=== PATIENT | male | born 1960 | race Two or more races ===

== ENCOUNTER 2017-01-19 18:43 | Emergency (ER) | payer MEDICARE, MEDICAID ==
[~2017-01-19] VITALS: Ht 175.3 cm; Wt 86.2 kg
[~2017-01-19 18:43] MED LIST: CARV3.1240 PO; GAB100C PO; OME20T PO; PAR20T PO; SIMV-8 PO; TEMA15CA91 PO
[2017-01-19] MEDS ORDERED: LORazepam 2MG/ML-1ML VIAL IM ONE (21:45)
[2017-01-20] MEDS ORDERED: ONDANSETRON HCL 4 MG/2 ML VIAL IV ONE (03:30)
[2017-01-20] MEDS ORDERED: MORPHINE SULF INJ 2 MG/ML SYRINGE 1ML IV ONE (03:30)
[2017-01-20 04:13] LABS: Albumin 3.7 g/dL (3.4-5.0); Anion Gap 7 (5-15); Aspartate Aminotransferase 19 U/L (15-37); BUN/Creatinine Ratio 21.3; Blood Urea Nitrogen 17 mg/dL (7-18); Calcium 8.2 mg/dL (8.5-10.1); Carbon Dioxide 24 mmol/L (21-32); Chloride 107 mmol/L (98-107); GFR African American 130 mL/min; GFR Non-African American 107 mL/min; Glucose 88 mg/dL (74-106); Potassium 3.8 mmol/L (3.5-5.1); Sodium 138 mmol/L (136-145)
[2017-01-20 04:16] LABS: Alkaline Phosphatase 110 U/L (45-117); Bilirubin, Total 0.6 mg/dL (0.2-1.0); Total Protein 7.6 g/dL (6.4-8.2)
[2017-01-20 04:17] LABS: Acetaminophen < 2.0 ug/mL (10-30); Salicylate < 1.7 mg/dL (2.8-20.0)
[2017-01-20 05:41] LABS: Basophils # (auto) 0 uL; Basophils % (auto) 0.4 % (0.0-2.0); CONDITION Y; Eosinophils # (auto) 0.4 uL; Eosinophils % (auto) 5.1 % (0.0-7.0); Hematocrit 39.9 % (41.0-53.0); Hemoglobin 13.2 g/dL (13.5-17.5); Lymphocytes # (auto) 2.5 uL; Lymphocytes % (auto) 33.5 % (10.0-50.0); Mean Corpuscular Volume 84.7 fL (80.0-100.0); Mean Platelet Volume 9.9 fL (7.4-10.4); Monocytes # (auto) 0.5 uL; Monocytes % (auto) 7.3 % (0.0-12.0); Neutrophils % (auto) 53.7 % (37.0-80.0); Platelet Count (auto) 243 10^3/uL (140-450); Red Cell Distribution Width 17.2 % (11.6-16.0); White Blood Cell 7.5 10^3/uL (4.4-10.8)
[2017-01-20] MEDS ORDERED: LORazepam 0.5 MG TAB PO PRN (15:15)
[2017-01-20] MEDS ORDERED: LORazepam 2MG/ML-1ML VIAL ONE (16:02)
[2017-01-20] MEDS ORDERED: LORazepam 2MG/ML-1ML VIAL IM ONE (16:15)
[2017-01-20] MEDS ORDERED: HYDROcodone-ACET 10/325MG TAB PO ONE (21:00)
[2017-01-20] MEDS ORDERED: TEMAZEPAM 15 MG CAP PO PRN (21:00)
[2017-01-20] MEDS: LORazepam 2MG/ML-1ML VIAL IM PRN (23:05)
[2017-01-21] MEDS ORDERED: ONDANSETRON HCL 4 MG/2 ML VIAL ONE (03:16)
[2017-01-21] MEDS ORDERED: ONDANSETRON HCL 4 MG/2 ML VIAL IM ONE (03:45)
[2017-01-21] MEDS: LORazepam 2MG/ML-1ML VIAL IM PRN (06:52)
[2017-01-21] MEDS ORDERED: KETOROLAC TROMETH 60MG/2ML VIAL IM ONE (16:15)
[2017-01-21 18:57] VITALS: BP 127/75
== END 2017-01-21 19:12 | disposition short-term general hospital (02) ==
LOC: EDBD 18:43 → ER 18:46
DX: F32.9 Major depressive disorder, single episode, unspecified (principal); F41.9 Anxiety disorder, unspecified; G80.9 Cerebral palsy, unspecified; E78.5 Hyperlipidemia, unspecified; R45.851 Suicidal ideations; R42 Dizziness and giddiness
CPT/HCPCS: 36415; 70450; 71010; 72125; 80053; 80320; 80329; 82962; 83735; 85025; 93005; 94761; 96372; 96374; 96375; 99285; J1885; J2060; J2405

== ENCOUNTER 2017-02-09 21:32 | Emergency (ER) | payer MEDICARE, MEDICAID ==
[~2017-02-09] VITALS: Ht 175.3 cm; Wt 81.6 kg
[2017-02-09 22:14] LABS: Basophils # (auto) 0.1 uL; Basophils % (auto) 0.9 % (0.0-2.0); Eosinophils # (auto) 0.4 uL; Eosinophils % (auto) 4.1 % (0.0-7.0); Hematocrit 39.4 % (41.0-53.0); Hemoglobin 13.2 g/dL (13.5-17.5); Lymphocytes # (auto) 2.8 uL; Lymphocytes % (auto) 29.5 % (10.0-50.0); Mean Corpuscular Hemoglobin 28.8 pg (28.0-32.0); Mean Corpuscular Hgb Conc. 33.6 g/dL (32.0-36.0); Mean Corpuscular Volume 85.7 fL (80.0-100.0); Mean Platelet Volume 9.3 fL (6.9-10.8); Monocytes # (auto) 0.6 uL; Monocytes % (auto) 6.6 % (0.0-12.0); Neutrophils # (auto) 5.5 uL; Neutrophils % (auto) 58.9 % (37.0-80.0); Nucleated Red Blood Cells % 0.4 %; Platelet Count (auto) 193 10^3/uL (140-450); Red Cell Distribution Width 17.2 % (11.8-14.3); White Blood Cell 9.4 10^3/uL (4.4-10.8)
[2017-02-09 22:49] LABS: Albumin 3.5 g/dL (3.4-5.0); BUN/Creatinine Ratio 21.4; Bilirubin, Total 0.4 mg/dL (0.2-1.0); Calcium 8.5 mg/dL (8.5-10.1); Potassium 3.5 mmol/L (3.5-5.1); Total Protein 7.1 g/dL (6.4-8.2)
[2017-02-10] MEDS ORDERED: LORazepam 2MG/ML-1ML VIAL IV ONE
[2017-02-10] MEDS ORDERED: MORPHINE SULF INJ 2 MG/ML SYRINGE 1ML IV ONE (01:30)
[2017-02-10] MEDS ORDERED: ONDANSETRON HCL 4 MG/2 ML VIAL IV ONE (01:30)
[2017-02-10 01:37] LABS: Urine Bilirubin Negative (Negative); Urine Blood Negative /uL (Negative); Urine Color Yellow (Yellow); Urine Glucose Normal (Normal); Urine Ketone Negative (Negative); Urine Nitrite Negative (Negative); Urine RBC 1 /hpf (0 - 3); Urine Squamous Epithelial Cell FEW /hpf (<5); Urine pH 6.5 (5.0-8.0)
[2017-02-10] MEDS ORDERED: MAGNESIUM CITRATE SOLUTION 300 ML BTL PO ONE (03:15)
[2017-02-10 07:30] VITALS: BP 129/84
== END 2017-02-10 08:50 | disposition home or self-care (01) ==
LOC: EDBD 21:32 → ER 21:38
DX: K59.00 Constipation, unspecified (principal); I10 Essential (primary) hypertension; Z88.0 Allergy status to penicillin
CPT/HCPCS: 36415; 74176; 80053; 81001; 82150; 83690; 85025; 96374; 96375; 99285; J2060; J2270; J2405

== ENCOUNTER 2017-03-15 16:01 | Emergency (ER) | payer MEDICARE, MEDICAID ==
[2017-03-15 16:42] VITALS: BP 126/84
== END 2017-03-15 18:26 | disposition home or self-care (01) ==
LOC: EDBD 16:01 → ER 16:01
DX: F41.9 Anxiety disorder, unspecified (principal); G80.9 Cerebral palsy, unspecified; I10 Essential (primary) hypertension; E78.5 Hyperlipidemia, unspecified; Z88.0 Allergy status to penicillin

== ENCOUNTER 2017-06-13 15:22 | Emergency (ER) | payer MEDICARE, MEDICAID ==
[~2017-06-13] VITALS: Ht 172.7 cm; Wt 74.8 kg
[2017-06-13 15:49] VITALS: BP 135/93
[2017-06-13 16:21] LABS: Eosinophils # (auto) 0.2 uL; Hemoglobin 13.8 g/dL (13.5-17.5); Lymphocytes # (auto) 2.7 uL; Mean Corpuscular Hgb Conc. 32.4 g/dL (32.0-36.0); Monocytes # (auto) 0.5 uL
[2017-06-13 16:25] LABS: Basophils # (auto) 0.1 uL; Basophils % (auto) 0.9 % (0.0-2.0); Eosinophils % (auto) 2.1 % (0.0-7.0); Hematocrit 42.7 % (41.0-53.0); Lymphocytes % (auto) 34.6 % (10.0-50.0); Mean Corpuscular Hemoglobin 26.8 pg (28.0-32.0); Mean Corpuscular Volume 82.7 fL (80.0-100.0); Monocytes % (auto) 7.1 % (0.0-12.0); Neutrophils # (auto) 4.3 uL; Neutrophils % (auto) 55.3 % (37.0-80.0); Nucleated Red Blood Cells % 0.3 %; Platelet Count (auto) 255 10^3/uL (140-450); Red Blood Cells 5.16 10^6/uL (4.5-5.90); White Blood Cell 7.7 10^3/uL (4.4-10.8)
[2017-06-13 16:41] LABS: Alanine Aminotransferase 28 U/L (16-61); Albumin 4.2 g/dL (3.4-5.0); Alkaline Phosphatase 127 U/L (45-117); Anion Gap 9 (5-15); Aspartate Aminotransferase 20 U/L (15-37); BUN/Creatinine Ratio 17.9; Bilirubin, Total 0.7 mg/dL (0.2-1.0); Blood Urea Nitrogen 15 mg/dL (7-18); Calcium 8.7 mg/dL (8.5-10.1); Carbon Dioxide 25 mmol/L (21-32); Chloride 102 mmol/L (98-107); GFR African American 122 mL/min; GFR Non-African American 101 mL/min; Glucose 84 mg/dL (74-106); Potassium 4.1 mmol/L (3.5-5.1); Sodium 136 mmol/L (136-145); Total Protein 8.7 g/dL (6.4-8.2)
== END 2017-06-13 18:24 | disposition left against medical advice (07) ==
LOC: ER 15:31
DX: R53.1 Weakness (principal); R52 Pain, unspecified; Z53.21 Procedure and treatment not carried out due to patient leaving prior to being seen by health care provider
CPT/HCPCS: 36415; 80053; 82962; 84484; 85025; 93005

== ENCOUNTER 2017-06-15 07:04 | Emergency (ER) | payer MEDICARE, MEDICAID ==
[~2017-06-15] VITALS: Ht 167.6 cm; Wt 77.1 kg
[2017-06-15 08:45] LABS: Basophils # (auto) 0 uL; Eosinophils # (auto) 0.2 uL; Mean Corpuscular Hgb Conc. 32.3 g/dL (32.0-36.0); Nucleated Red Blood Cells % 0.1 %
[2017-06-15 08:47] LABS: Basophils % (auto) 0.8 % (0.0-2.0); Hematocrit 40.2 % (41.0-53.0); Lymphocytes # (auto) 1.7 uL; Mean Corpuscular Hemoglobin 26.6 pg (28.0-32.0); Mean Corpuscular Volume 82.3 fL (80.0-100.0); Monocytes # (auto) 0.4 uL; Monocytes % (auto) 7.8 % (0.0-12.0); Neutrophils # (auto) 2.5 uL; Neutrophils % (auto) 51.4 % (37.0-80.0); Platelet Count (auto) 231 10^3/uL (140-450); Red Blood Cells 4.88 10^6/uL (4.5-5.90); Red Cell Distribution Width 15.7 % (11.8-14.3); White Blood Cell 4.8 10^3/uL (4.4-10.8)
[2017-06-15 08:58] LABS: Albumin 3.7 g/dL (3.4-5.0); Anion Gap 9 (5-15); Blood Urea Nitrogen 18 mg/dL (7-18); Calcium 8.8 mg/dL (8.5-10.1); Carbon Dioxide 24 mmol/L (21-32); Chloride 106 mmol/L (98-107); Glucose 92 mg/dL (74-106); Magnesium 2.4 mg/dL (1.6-2.6); Potassium 3.9 mmol/L (3.5-5.1); Sodium 139 mmol/L (136-145)
[2017-06-15 09:01] LABS: Alanine Aminotransferase 24 U/L (16-61); Aspartate Aminotransferase 15 U/L (15-37); BUN/Creatinine Ratio 20.9; GFR African American 119 mL/min; GFR Non-African American 98 mL/min
[2017-06-15 09:05] LABS: Alkaline Phosphatase 108 U/L (45-117); Bilirubin, Total 0.3 mg/dL (0.2-1.0); Total Protein 7.6 g/dL (6.4-8.2)
[2017-06-15] MEDS ORDERED: KETOROLAC TROMETH 60MG/2ML VIAL IM ONE (09:15)
[2017-06-15 09:58] VITALS: BP 124/80
== END 2017-06-15 09:13 | disposition home or self-care (01) ==
LOC: EDBD 07:04 → EDUNIT# 07:04 → ER 07:04
DX: G80.9 Cerebral palsy, unspecified (principal); M77.9 Enthesopathy, unspecified; I10 Essential (primary) hypertension; E78.5 Hyperlipidemia, unspecified; Z88.0 Allergy status to penicillin
CPT/HCPCS: 36415; 71045; 80053; 83735; 84484; 85025; 93005; 94761; 96372; 99285; J1885

== ENCOUNTER 2017-11-08 15:53 | Emergency (ER) | payer MEDICARE, MEDICAID ==
[~2017-11-08] VITALS: Ht 182.9 cm; Wt 81.6 kg
[2017-11-08 16:07] VITALS: BP 131/76
== END 2017-11-08 17:13 | disposition home or self-care (01) ==
LOC: ER 15:55
DX: L25.9 Unspecified contact dermatitis, unspecified cause (principal); E78.5 Hyperlipidemia, unspecified; I10 Essential (primary) hypertension; Z88.0 Allergy status to penicillin; Z79.899 Other long term (current) drug therapy

== ENCOUNTER 2017-11-12 15:26 | Emergency (ER) | payer MEDICARE, MEDICAID ==
[~2017-11-12] VITALS: Ht 157.5 cm; Wt 72.6 kg
[2017-11-12 16:33] VITALS: BP 132/87
[2017-11-12 16:42] LABS: Basophils # (auto) 0.1 uL; Basophils % (auto) 0.9 % (0.0-2.0); Eosinophils # (auto) 0.3 uL; Eosinophils % (auto) 4.3 % (0.0-7.0); Hematocrit 42.1 % (41.0-53.0); Lymphocytes % (auto) 28.9 % (10.0-50.0); Mean Corpuscular Hemoglobin 27.9 pg (28.0-32.0); Mean Corpuscular Hgb Conc. 33.4 g/dL (32.0-36.0); Mean Corpuscular Volume 83.7 fL (80.0-100.0); Monocytes # (auto) 0.5 uL; Monocytes % (auto) 7.7 % (0.0-12.0); Neutrophils # (auto) 4.1 uL; Neutrophils % (auto) 58.2 % (37.0-80.0); Nucleated Red Blood Cells % 0.1 %; Platelet Count (auto) 207 10^3/uL (140-450); Red Blood Cells 5.03 10^6/uL (4.5-5.90); Red Cell Distribution Width 16.6 % (11.8-14.3)
[2017-11-12 17:06] LABS: Albumin 3.9 g/dL (3.4-5.0); BUN/Creatinine Ratio 18.8; Calcium 8.6 mg/dL (8.5-10.1); Salicylate < 1.7 mg/dL (2.8-20.0)
[2017-11-12 17:08] LABS: Acetaminophen < 2.0 ug/mL (10-30)
[2017-11-12 17:09] LABS: Bilirubin, Total 0.6 mg/dL (0.2-1.0)
== END 2017-11-12 19:56 | disposition home or self-care (01) ==
LOC: EDBD 15:26 → ER 15:28
DX: F41.9 Anxiety disorder, unspecified (principal); I10 Essential (primary) hypertension; E78.5 Hyperlipidemia, unspecified; F31.9 Bipolar disorder, unspecified
CPT/HCPCS: 36415; 80053; 80320; 80329; 85025

== ENCOUNTER 2017-12-18 20:47 | Inpatient (IN) | payer MEDICARE, MEDICAID ==
[~2017-12-18] VITALS: Ht 165.1 cm; Wt 73.4 kg
[2017-12-18 23:31] LABS: Basophils # (auto) 0.1 uL; Basophils % (auto) 0.8 % (0.0-2.0); Eosinophils # (auto) 0.3 uL; Eosinophils % (auto) 4.7 % (0.0-7.0); Hematocrit 41.9 % (41.0-53.0); Hemoglobin 13.6 g/dL (13.5-17.5); Lymphocytes % (auto) 42.8 % (10.0-50.0); Mean Corpuscular Hemoglobin 27.9 pg (28.0-32.0); Mean Corpuscular Hgb Conc. 32.4 g/dL (32.0-36.0); Mean Corpuscular Volume 86.3 fL (80.0-100.0); Monocytes # (auto) 0.5 uL; Monocytes % (auto) 6.7 % (0.0-12.0); Neutrophils # (auto) 3.2 uL; Platelet Count (auto) 260 10^3/uL (140-450); Red Blood Cells 4.86 10^6/uL (4.5-5.90); Red Cell Distribution Width 16.3 % (11.8-14.3)
[2017-12-18 23:48] LABS: Acetaminophen < 2.0 ug/mL (10-30); Salicylate < 1.7 mg/dL (2.8-20.0)
[2017-12-18 23:51] LABS: Albumin 3.8 g/dL (3.4-5.0); Bilirubin, Total 0.6 mg/dL (0.2-1.0); Calcium 8.1 mg/dL (8.5-10.1); Magnesium 2.6 mg/dL (1.6-2.6); Potassium 3.8 mmol/L (3.5-5.1); Total Protein 7.8 g/dL (6.4-8.2)
[2017-12-19] MEDS ORDERED: MORPHINE SULFATE 4 MG/ML SYR/VIAL IV ONE (05:15)
[2017-12-19] MEDS ORDERED: ONDANSETRON HCL 4 MG/2 ML VIAL IV ONE (05:15)
[2017-12-19] MEDS ORDERED: KETOROLAC TROMETH 30 MG/ML 1ML VIAL IV ONE (09:00)
[2017-12-19 09:04] LABS: Alcohol, Urine < 3.0 mg/dL (0-5); Amphetamine Screen, Urine NEGATIVE (NEGATIVE); Barbiturate Scree,Urine NEGATIVE (NEGATIVE); Benzodiazephine Screen, Urine POSITIVE (NEGATIVE); Cannabinoid Screen, Urine NEGATIVE (NEGATIVE); Cocaine Screen, Urine NEGATIVE (NEGATIVE); Opiate Scree,Urine NEGATIVE (NEGATIVE); Phencyclidine Screen, Urine NEGATIVE (NEGATIVE)
[2017-12-19] MEDS ORDERED: LORazepam 0.5 MG TAB PO ONE (14:00)
[2017-12-19] MEDS ORDERED: traZODone HCL 50 MG TAB PO ONE (18:00)
[2017-12-19] MEDS ORDERED: HYDROcodone-ACET 5/325MG TAB PO ONE (18:00)
[2017-12-20] MEDS ORDERED: HYDROcodone-ACET 5/325MG TAB PO ONE ×3 (05:00→13:00)
[2017-12-20] MEDS ORDERED: KETOROLAC TROMETH 30 MG/ML 1ML VIAL IV ONE ×2 (09:15→17:00)
[2017-12-20] MEDS ORDERED: PARoxetine 20 MG TAB PO ONE (10:00)
[2017-12-20] MEDS ORDERED: LORazepam 2MG/ML-1ML VIAL IV ONE (19:30)
[2017-12-20] MEDS ORDERED: HALOPERIDOL LACTATE 5 MG/ML INJ VIAL IM ONE (19:30)
[2017-12-20] MEDS ORDERED: diphenhdrAMINE HCL 50 MG/1 ML VL IV ONE (19:30)
[2017-12-20] MEDS ORDERED: diphenhdrAMINE HCL 50 MG/1 ML VL IV PRN (21:00)
[2017-12-20] MEDS ORDERED: TEMAZEPAM 15 MG CAP PO PRN (21:00)
[2017-12-20] MEDS ORDERED: ONDANSETRON HCL 4 MG/2 ML VIAL IV PRN (21:00)
[2017-12-20] MEDS: CARVEDILOL 3.125 MG TAB PO SCH (22:00)
[2017-12-20] MEDS: GABAPENTIN 100 MG CAP PO SCH (22:00)
[2017-12-20 22:30] VITALS: BP 118/97
[2017-12-20] MEDS ORDERED: TRAZ50TA2 PO (23:31)
[2017-12-21 05:00] VITALS: BP 120/75
[2017-12-21 05:49] LABS: Basophils # (auto) 0.1 uL; Basophils % (auto) 0.6 % (0.0-2.0); Eosinophils # (auto) 0.2 uL; Eosinophils % (auto) 2.3 % (0.0-7.0); Hematocrit 41.6 % (41.0-53.0); Hemoglobin 13.9 g/dL (13.5-17.5); Lymphocytes # (auto) 2.1 uL; Lymphocytes % (auto) 25.1 % (10.0-50.0); Mean Corpuscular Hemoglobin 28.3 pg (28.0-32.0); Mean Corpuscular Hgb Conc. 33.4 g/dL (32.0-36.0); Mean Corpuscular Volume 84.7 fL (80.0-100.0); Monocytes # (auto) 0.5 uL; Monocytes % (auto) 5.6 % (0.0-12.0); Neutrophils # (auto) 5.4 uL; Neutrophils % (auto) 66.4 % (37.0-80.0); Platelet Count (auto) 234 10^3/uL (140-450); Red Blood Cells 4.91 10^6/uL (4.5-5.90); Red Cell Distribution Width 15.9 % (11.8-14.3); White Blood Cell 8.2 10^3/uL (4.4-10.8)
[2017-12-21] MEDS: GABAPENTIN 100 MG CAP PO SCH ×3 (06:00→21:23)
[2017-12-21 06:13] LABS: BUN/Creatinine Ratio 25.3; Calcium 8.7 mg/dL (8.5-10.1); Potassium 4.1 mmol/L (3.5-5.1)
[2017-12-21 08:00] VITALS: BP 116/67
[2017-12-21] MEDS: ACETAMINOPHEN 650 mg PER 20 mL UD PO PRN ×2 (09:29→15:59)
[2017-12-21] MEDS: PARoxetine 20 MG TAB PO SCH (10:00)
[2017-12-21] MEDS: CARVEDILOL 3.125 MG TAB PO SCH ×2 (10:00→21:20)
[2017-12-21] MEDS: LORazepam 2MG/ML-1ML VIAL IV PRN (12:14)
[2017-12-21] MEDS: MORPHINE SULF INJ 2 MG/ML SYRINGE 1ML IV PRN ×2 (16:34→22:00)
[2017-12-21 21:19] VITALS: BP 101/61
[2017-12-22 05:00] VITALS: BP 104/69
[2017-12-22] MEDS: MORPHINE SULF INJ 2 MG/ML SYRINGE 1ML IV PRN ×4 (05:03→23:05)
[2017-12-22] MEDS: GABAPENTIN 100 MG CAP PO SCH ×3 (05:48→21:42)
[2017-12-22 08:00] VITALS: BP 123/80
[2017-12-22 08:36] VITALS: BP 123/80
[2017-12-22] MEDS: CARVEDILOL 3.125 MG TAB PO SCH ×2 (10:00→21:42)
[2017-12-22] MEDS: PARoxetine 20 MG TAB PO SCH (11:16)
[2017-12-22] MEDS: D5W/SOD CHLO 0.9% 1,000 ML IV SCH (11:16)
[2017-12-22 12:58] VITALS: BP 134/79
[2017-12-22 17:00] VITALS: BP 137/75
[2017-12-22 21:03] VITALS: BP 99/73
[2017-12-22] MEDS: LORazepam 2MG/ML-1ML VIAL IV PRN (21:31)
[2017-12-23] MEDS: D5W/SOD CHLO 0.9% 1,000 ML IV SCH ×2 (00:15→12:30)
[2017-12-23] MEDS: LORazepam 2MG/ML-1ML VIAL IV PRN (04:05)
[2017-12-23 05:09] VITALS: BP 107/66
[2017-12-23] MEDS: GABAPENTIN 100 MG CAP PO SCH ×3 (06:18→21:43)
[2017-12-23] MEDS: MORPHINE SULF INJ 2 MG/ML SYRINGE 1ML IV PRN ×3 (06:19→18:31)
[2017-12-23 09:04] VITALS: BP 141/75
[2017-12-23] MEDS: CARVEDILOL 3.125 MG TAB PO SCH ×2 (09:59→21:44)
[2017-12-23] MEDS: HYDROcodone-ACET 5/325MG TAB PO PRN ×2 (09:59→21:43)
[2017-12-23] MEDS: PARoxetine 20 MG TAB PO SCH (10:00)
[2017-12-23 13:00] VITALS: BP 113/73
[2017-12-23 16:55] VITALS: BP 117/76
[2017-12-23 19:30] VITALS: BP 118/77
[2017-12-23 22:00] VITALS: BP 118/77
[2017-12-24] MEDS: D5W/SOD CHLO 0.9% 1,000 ML IV SCH ×2 (01:45→18:30)
[2017-12-24 05:00] VITALS: BP 120/72
[2017-12-24] MEDS: MORPHINE SULF INJ 2 MG/ML SYRINGE 1ML IV PRN ×3 (05:09→21:23)
[2017-12-24] MEDS: GABAPENTIN 100 MG CAP PO SCH ×3 (05:37→21:23)
[2017-12-24 08:00] VITALS: BP 102/72
[2017-12-24 09:13] VITALS: BP 102/72
[2017-12-24] MEDS: PARoxetine 20 MG TAB PO SCH (09:44)
[2017-12-24] MEDS: CARVEDILOL 3.125 MG TAB PO SCH ×2 (09:44→21:24)
[2017-12-24] MEDS: HYDROcodone-ACET 5/325MG TAB PO PRN ×2 (09:45→09:58)
[2017-12-24 14:23] VITALS: BP 104/68
[2017-12-24 17:44] VITALS: BP 132/77
[2017-12-24 22:00] VITALS: BP 108/67
[2017-12-25 05:42] VITALS: BP 109/70
[2017-12-25] MEDS: GABAPENTIN 100 MG CAP PO SCH ×3 (06:01→22:15)
[2017-12-25] MEDS: MORPHINE SULF INJ 2 MG/ML SYRINGE 1ML IV PRN ×2 (06:38→18:59)
[2017-12-25 08:00] VITALS: BP 102/62
[2017-12-25 08:47] VITALS: BP 125/80
[2017-12-25] MEDS: D5W/SOD CHLO 0.9% 1,000 ML IV SCH ×2 (08:57→17:45)
[2017-12-25] MEDS: CARVEDILOL 3.125 MG TAB PO SCH ×2 (08:58→22:16)
[2017-12-25] MEDS: DOCUSATE SOD 100 MG CAP PO SCH ×2 (08:58→22:15)
[2017-12-25] MEDS: PARoxetine 20 MG TAB PO SCH (08:59)
[2017-12-25] MEDS: HYDROcodone-ACET 5/325MG TAB PO PRN (11:46)
[2017-12-25 13:08] VITALS: BP 99/51
[2017-12-25 17:24] VITALS: BP 109/70
[2017-12-25 21:56] VITALS: BP 112/74
[2017-12-26 04:50] VITALS: BP 106/58
[2017-12-26] MEDS: GABAPENTIN 100 MG CAP PO SCH ×2 (05:51→14:28)
[2017-12-26] MEDS: MORPHINE SULF INJ 2 MG/ML SYRINGE 1ML IV PRN ×2 (06:02→14:32)
[2017-12-26 08:43] VITALS: BP 121/70
[2017-12-26] MEDS: HYDROcodone-ACET 5/325MG TAB PO PRN ×2 (10:05→17:55)
[2017-12-26] MEDS: PARoxetine 20 MG TAB PO SCH (10:05)
[2017-12-26] MEDS: DOCUSATE SOD 100 MG CAP PO SCH (10:06)
[2017-12-26] MEDS: CARVEDILOL 3.125 MG TAB PO SCH (10:06)
[2017-12-26] MEDS: D5W/SOD CHLO 0.9% 1,000 ML IV SCH (12:41)
[2017-12-26 13:00] VITALS: BP 103/68
[2017-12-26 17:00] VITALS: BP 106/67
== END 2017-12-26 21:00 | disposition home or self-care (01) | DRG 881 ==
LOC: EDBD 20:47 → ER 20:57 → OVERFLOW 20:58 → EAST 12-20 22:50
PROVIDERS: ADMIT Nurse Practitioner Family; ATTEND Family Medicine
DX: F32.9 Major depressive disorder, single episode, unspecified (principal); R45.851 Suicidal ideations; G80.9 Cerebral palsy, unspecified; I10 Essential (primary) hypertension; E78.00 Pure hypercholesterolemia, unspecified; F41.9 Anxiety disorder, unspecified; F17.200 Nicotine dependence, unspecified, uncomplicated; Z82.49 Family history of ischemic heart disease and other diseases of the circulatory system; Z99.3 Dependence on wheelchair; Z83.3 Family history of diabetes mellitus; Z79.899 Other long term (current) drug therapy
CPT/HCPCS: 36415; 71045; 72125; 80048; 80053; 80307; 80329; 83735; 85025; 94761; 96374; 96375; J1885; J2405; J7042

== ENCOUNTER 2018-01-31 12:42 | Emergency (ER) | payer MEDICARE, MEDICAID ==
[~2018-01-31] VITALS: Ht 167.6 cm; Wt 77.1 kg
[~2018-01-31 12:42] MED LIST changes: +TRAZ50TA2 PO
[2018-01-31] MEDS ORDERED: SODIUM CHLORIDE 0.9% 1,000 ML IV ONE (13:07)
[2018-01-31] MEDS ORDERED: DIPHENOXYLATE W/ATROPINE 2.5 MG TAB PO ONE (13:15)
[2018-01-31 13:28] LABS: Basophils # (auto) 0.1 uL; Basophils % (auto) 0.7 % (0.0-2.0); Eosinophils # (auto) 0.2 uL; Eosinophils % (auto) 3.2 % (0.0-7.0); Hematocrit 41.3 % (41.0-53.0); Hemoglobin 13.9 g/dL (13.5-17.5); Lymphocytes # (auto) 2.3 uL; Lymphocytes % (auto) 30.8 % (10.0-50.0); Mean Corpuscular Hemoglobin 28.8 pg (28.0-32.0); Mean Corpuscular Hgb Conc. 33.7 g/dL (32.0-36.0); Mean Corpuscular Volume 85.4 fL (80.0-100.0); Monocytes # (auto) 0.7 uL; Monocytes % (auto) 9.2 % (0.0-12.0); Neutrophils # (auto) 4.2 uL; Neutrophils % (auto) 56.1 % (37.0-80.0); Nucleated Red Blood Cells % 0.1 %; Platelet Count (auto) 197 10^3/uL (140-450); Red Blood Cells 4.84 10^6/uL (4.5-5.90); Red Cell Distribution Width 15.7 % (11.8-14.3); White Blood Cell 7.5 10^3/uL (4.4-10.8)
[2018-01-31 13:51] LABS: Alanine Aminotransferase 33 U/L (16-61); Alkaline Phosphatase 113 U/L (45-117); Anion Gap 7 (5-15); Aspartate Aminotransferase 16 U/L (15-37); BUN/Creatinine Ratio 15.3; Bilirubin, Total 0.5 mg/dL (0.2-1.0); Blood Urea Nitrogen 15 mg/dL (7-18); Calcium 9.1 mg/dL (8.5-10.1); Carbon Dioxide 26 mmol/L (21-32); Chloride 105 mmol/L (98-107); GFR African American 102 mL/min; GFR Non-African American 84 mL/min; Glucose 99 mg/dL (74-106); Potassium 4.5 mmol/L (3.5-5.1); Sodium 138 mmol/L (136-145); Total Protein 8.2 g/dL (6.4-8.2)
[2018-01-31] MEDS ORDERED: HYDROcodone-ACET 5/325MG TAB PO ONE (14:45)
[2018-01-31] MEDS ORDERED: ONDANSETRON HCL 4 MG/2 ML VIAL IV ONE (14:45)
[2018-01-31] MEDS ORDERED: MORPHINE SULFATE 4 MG/ML SYR/VIAL IV ONE (14:45)
[2018-01-31 17:07] LABS: Urine Bacteria NONE SEEN /hpf (None Seen); Urine Blood Negative /uL (Negative); Urine Specific Gravity 1.008 (1.001-1.035); Urine WBC 1 /hpf (0 - 3)
[2018-01-31 18:00] VITALS: BP 124/71
== END 2018-01-31 18:15 | disposition home or self-care (01) ==
LOC: EDBD 12:42 → EDUNIT# 12:42 → ER 12:42
DX: R19.7 Diarrhea, unspecified (principal); E78.5 Hyperlipidemia, unspecified; Z88.0 Allergy status to penicillin; Z79.899 Other long term (current) drug therapy
CPT/HCPCS: 36415; 74176; 80053; 81001; 84484; 85025; 93005; 96361; 96374; 96375; 99285; J2270; J2405

== ENCOUNTER 2018-02-08 20:42 | Observation (INO) | payer MEDICARE, MEDICAID ==
[~2018-02-08] VITALS: Ht 167.6 cm; Wt 86.2 kg
[2018-02-09 00:32] LABS: Basophils # (auto) 0.2 uL; Basophils % (auto) 2.1 % (0.0-2.0); Eosinophils # (auto) 0.3 uL; Eosinophils % (auto) 3.5 % (0.0-7.0); Hematocrit 39.7 % (41.0-53.0); Hemoglobin 13.1 g/dL (13.5-17.5); Lymphocytes # (auto) 2.8 uL; Lymphocytes % (auto) 35.1 % (10.0-50.0); Mean Corpuscular Hemoglobin 28.4 pg (28.0-32.0); Mean Corpuscular Volume 85.9 fL (80.0-100.0); Monocytes # (auto) 0.5 uL; Monocytes % (auto) 6.3 % (0.0-12.0); Neutrophils # (auto) 4.3 uL; Nucleated Red Blood Cells % 0.1 %; Platelet Count (auto) 203 10^3/uL (140-450); Red Blood Cells 4.62 10^6/uL (4.5-5.90); Red Cell Distribution Width 15.7 % (11.8-14.3); White Blood Cell 8.1 10^3/uL (4.4-10.8)
[2018-02-09 00:54] LABS: Albumin 3.7 g/dL (3.4-5.0); BUN/Creatinine Ratio 14.6; Calcium 8.4 mg/dL (8.5-10.1); Potassium 4.2 mmol/L (3.5-5.1)
[2018-02-09 00:57] LABS: Bilirubin, Total 0.6 mg/dL (0.2-1.0); Total Protein 7.7 g/dL (6.4-8.2)
[2018-02-09] MEDS ORDERED: ACETAMINOPHEN/CODEINE#3 (300/30mg) TAB PO ONE (05:45)
[2018-02-09 08:47] VITALS: BP 109/78
== END 2018-02-09 08:53 | disposition home or self-care (01) | DRG 392 ==
LOC: EDUNIT# 20:42 → EDBD 20:42 → ER 20:44 → OVERFLOW 20:45 → ER 02-09 08:53
PROVIDERS: ADMIT Emergency Medicine; ATTEND Emergency Medicine
DX: R10.9 Unspecified abdominal pain (principal); K80.20 Calculus of gallbladder without cholecystitis without obstruction; F17.200 Nicotine dependence, unspecified, uncomplicated
CPT/HCPCS: 36415; 74176; 80053; 82150; 83690; 85025; 99285; G0378

== ENCOUNTER 2018-03-04 14:17 | Emergency (ER) | payer MEDICARE, MEDICAID ==
[~2018-03-04] VITALS: Ht 165.1 cm; Wt 77.1 kg
[2018-03-04] MEDS ORDERED: SODIUM CHLORIDE 0.9% 1,000 ML IV ONE (14:55)
[2018-03-04 15:35] LABS: Basophils # (auto) 0 uL; Basophils % (auto) 0.5 % (0.0-2.0); Eosinophils # (auto) 0.3 uL; Eosinophils % (auto) 5.1 % (0.0-7.0); Hematocrit 44.5 % (41.0-53.0); Hemoglobin 15.2 g/dL (13.5-17.5); Lymphocytes # (auto) 1.3 uL; Lymphocytes % (auto) 22.9 % (10.0-50.0); Mean Corpuscular Hemoglobin 29.1 pg (28.0-32.0); Mean Corpuscular Hgb Conc. 34.1 g/dL (32.0-36.0); Mean Corpuscular Volume 85.4 fL (80.0-100.0); Monocytes # (auto) 0.5 uL; Monocytes % (auto) 8.8 % (0.0-12.0); Neutrophils # (auto) 3.5 uL; Neutrophils % (auto) 62.7 % (37.0-80.0); Nucleated Red Blood Cells % 0.1 %; Platelet Count (auto) 191 10^3/uL (140-450); Red Blood Cells 5.21 10^6/uL (4.5-5.90); Red Cell Distribution Width 15.8 % (11.8-14.3); White Blood Cell 5.6 10^3/uL (4.4-10.8)
[2018-03-04 15:52] LABS: Anion Gap 6 (5-15); Blood Urea Nitrogen 9 mg/dL (7-18); Calcium 9.1 mg/dL (8.5-10.1); Carbon Dioxide 27 mmol/L (21-32); Chloride 102 mmol/L (98-107); Glucose 95 mg/dL (74-106); INR 0.96 (0.9-1.15); Potassium 3.5 mmol/L (3.5-5.1); Prothrombin Time 10.3 sec (9.27-12.13); Sodium 135 mmol/L (136-145)
[2018-03-04 16:00] LABS: Salicylate < 1.7 mg/dL (2.8-20.0)
[2018-03-04 16:03] LABS: Acetaminophen < 2.0 ug/mL (10-30)
[2018-03-04 16:07] LABS: Alanine Aminotransferase 20 U/L (16-61); Alkaline Phosphatase 123 U/L (45-117); Aspartate Aminotransferase 11 U/L (15-37); BUN/Creatinine Ratio 9.1; Bilirubin, Total 0.9 mg/dL (0.2-1.0); GFR African American 101 mL/min; GFR Non-African American 83 mL/min; Total Protein 8.3 g/dL (6.4-8.2)
[2018-03-04] MEDS ORDERED: ONDANSETRON HCL 4 MG/2 ML VIAL IV ONE (17:00)
[2018-03-04] MEDS ORDERED: MORPHINE SULFATE 4 MG/ML SYR/VIAL IV ONE (17:00)
[2018-03-04 17:21] LABS: Amphetamine Screen, Urine NEGATIVE (NEGATIVE); Barbiturate Scree,Urine NEGATIVE (NEGATIVE); Benzodiazephine Screen, Urine POSITIVE (NEGATIVE); Cannabinoid Screen, Urine NEGATIVE (NEGATIVE); Cocaine Screen, Urine NEGATIVE (NEGATIVE); Opiate Scree,Urine NEGATIVE (NEGATIVE); Phencyclidine Screen, Urine NEGATIVE (NEGATIVE)
[2018-03-04 17:22] LABS: Urine Bacteria NONE SEEN /hpf (None Seen); Urine Blood 1+ /uL (Negative); Urine Mucus FEW (None Seen); Urine Specific Gravity 1.026 (1.001-1.035); Urine WBC 4 /hpf (0 - 3)
[2018-03-04 18:44] VITALS: BP 107/76
== END 2018-03-04 20:33 | disposition home or self-care (01) ==
LOC: EDBD 14:17 → EDUNIT# 14:17 → ER 14:17
DX: F41.9 Anxiety disorder, unspecified (principal); G80.9 Cerebral palsy, unspecified; E78.5 Hyperlipidemia, unspecified; I10 Essential (primary) hypertension; F31.9 Bipolar disorder, unspecified; Z88.0 Allergy status to penicillin; Z79.899 Other long term (current) drug therapy
CPT/HCPCS: 36415; 70450; 71045; 80053; 80307; 80329; 81001; 82962; 83605; 84484; 85025; 85610; 85730; 87040; 96361; 96374; 96375; 99285; J2270; J2405; J7030

== ENCOUNTER 2018-04-07 08:53 | Emergency (ER) | payer MEDICARE, MEDICAID ==
[~2018-04-07] VITALS: Ht 172.7 cm; Wt 81.6 kg
[2018-04-07 09:50] LABS: Urine Bacteria NONE SEEN /hpf (None Seen); Urine Blood Negative /uL (Negative); Urine Specific Gravity 1.023 (1.001-1.035)
[2018-04-07 09:55] LABS: Urine WBC 0 /hpf (0 - 3)
[2018-04-07 09:57] LABS: Basophils # (auto) 0 uL; Basophils % (auto) 0.8 % (0.0-2.0); Eosinophils # (auto) 0.1 uL; Eosinophils % (auto) 2.6 % (0.0-7.0); Hematocrit 43.3 % (41.0-53.0); Hemoglobin 14.1 g/dL (13.5-17.5); Lymphocytes # (auto) 1.4 uL; Lymphocytes % (auto) 25.3 % (10.0-50.0); Mean Corpuscular Hemoglobin 28.2 pg (28.0-32.0); Mean Corpuscular Hgb Conc. 32.6 g/dL (32.0-36.0); Mean Corpuscular Volume 86.3 fL (80.0-100.0); Monocytes # (auto) 0.3 uL; Monocytes % (auto) 5.9 % (0.0-12.0); Neutrophils # (auto) 3.6 uL; Neutrophils % (auto) 65.4 % (37.0-80.0); Nucleated Red Blood Cells % 0.1 %; Platelet Count (auto) 214 10^3/uL (140-450); Red Blood Cells 5.02 10^6/uL (4.5-5.90); Red Cell Distribution Width 16.4 % (11.8-14.3); White Blood Cell 5.4 10^3/uL (4.4-10.8)
[2018-04-07 10:07] LABS: Albumin 4.1 g/dL (3.4-5.0); BUN/Creatinine Ratio 20.8; Calcium 8.9 mg/dL (8.5-10.1); Potassium 4.1 mmol/L (3.5-5.1)
[2018-04-07 10:09] LABS: Bilirubin, Total 0.5 mg/dL (0.2-1.0); Total Protein 7.9 g/dL (6.4-8.2)
[2018-04-07] MEDS ORDERED: KETOROLAC TROMETH 60MG/2ML VIAL IM ONE (10:30)
[2018-04-07 14:33] VITALS: BP 113/87
== END 2018-04-07 15:05 | disposition home or self-care (01) ==
LOC: ER 08:53 → EDBD 08:53 → ER 15:05
DX: M79.10 Myalgia, unspecified site (principal); M54.9 Dorsalgia, unspecified; R51 Headache; I10 Essential (primary) hypertension; E78.5 Hyperlipidemia, unspecified; Z88.0 Allergy status to penicillin; W19.XXXA Unspecified fall, initial encounter; Y93.89 Activity, other specified; Y99.8 Other external cause status; Y92.89 Other specified places as the place of occurrence of the external cause
CPT/HCPCS: 36415; 51702; 71111; 72170; 72192; 80053; 81001; 85025; 94761; 96372; 99284; J1885

== ENCOUNTER 2019-02-10 11:08 | Inpatient (IN) | payer MEDICARE, MEDICAID ==
[~2019-02-10] VITALS: Ht 170.2 cm; Wt 95.1 kg
[2019-02-10] MEDS ORDERED: SODIUM CHLORIDE 0.9% 500 ML IVB ONE (11:18)
[2019-02-10 12:19] LABS: Basophils # (auto) 0 uL; Basophils % (auto) 0.5 % (0.0-2.0); Eosinophils # (auto) 0.2 uL; Hematocrit 45.3 % (41.0-53.0); Hemoglobin 15.2 g/dL (13.5-17.5); Lymphocytes # (auto) 2.4 uL; Lymphocytes % (auto) 39.6 % (10.0-50.0); Mean Corpuscular Hemoglobin 29.8 pg (28.0-32.0); Mean Corpuscular Hgb Conc. 33.5 g/dL (32.0-36.0); Monocytes # (auto) 0.4 uL; Monocytes % (auto) 7.3 % (0.0-12.0); Neutrophils % (auto) 49.6 % (37.0-80.0); Nucleated Red Blood Cells % 0.1 %; Platelet Count (auto) 199 10^3/uL (140-450); Red Blood Cells 5.09 10^6/uL (4.5-5.90); Red Cell Distribution Width 15.3 % (11.8-14.3); White Blood Cell 6.1 10^3/uL (4.4-10.8)
[2019-02-10 12:41] LABS: Potassium 4.3 mmol/L (3.5-5.1)
[2019-02-10 12:54] LABS: Bilirubin, Total 0.5 mg/dL (0.2-1.0); Calcium 8.7 mg/dL (8.5-10.1); Total Protein 8.1 g/dL (6.4-8.2)
[2019-02-10] MEDS ORDERED: MORPHINE SULF INJ 2 MG/ML SYRINGE 1ML IV ONE (13:45)
[2019-02-10] MEDS ORDERED: ONDANSETRON HCL 4 MG/2 ML VIAL IV ONE (13:45)
[2019-02-10 14:01] LABS: Urine Bacteria NONE SEEN /hpf (None Seen); Urine Blood Negative /uL (Negative); Urine Hyaline Cast FEW /lpf (0 - 2); Urine Mucus FEW (None Seen); Urine Specific Gravity 1.023 (1.001-1.035); Urine WBC 1 /hpf (0 - 3)
[2019-02-10] MEDS ORDERED: NITROGLYCERIN 0.4 MG SL TAB SL PRN (15:15)
[2019-02-10] MEDS ORDERED: MORPHINE SULF INJ 2 MG/ML SYRINGE 1ML IV PRN (15:15)
[2019-02-10] MEDS: SODIUM CHLORIDE 0.9% 1,000 ML IV SCH (15:40)
--- NOTE | 2019-02-10 16:02 | NUR ---
Telemetry admit from ER ANA LAURA COREAS admitted to Telemetry unit after SBAR received. Patient oriented to Fermín Adair, primary RN, unit, room, bed, and unit policies regarding patient care and visiting hours. Patient only makes incomprehensible sounds and follows simple commands. Patient has cerebral palsy. Patient now on continuous telemetry monitoring, tele box #2 and telemetry reading on arrival to unit is SR-85. Patient placed on bedside oxygen, weighed by bedscale and encouraged to call/press the call light if they need something.
[2019-02-10 17:00] VITALS: BP 144/77
[2019-02-10] MEDS: MORPHINE SULF INJ 2 MG/ML SYRINGE 1ML IV PRN ×2 (18:29→22:54)
--- NOTE | 2019-02-10 19:00 | NUR ---
OPEN SHIFT NOTE PATIENT IS AWAKE SITTING UP IN BED. NO S/S OF DISTRESS NOTED, NO COMPLAINTS OF PAIN AT THIS TIME. POC DISCUSSED. BED IS LOCKED IN LOWEST POSITION WITH SIDE RAILS UP X3 FOR SAFETY. CALL LIGHT IS WITHIN REACH AND PATIENT ENCOURAGED TO CALL IF NEEDS ANYTHING. WILL CONTINUE TO ROUND Q1HR AND PRN.
[2019-02-10] MEDS: ONDANSETRON HCL 4 MG/2 ML VIAL IV PRN (20:46)
[2019-02-10] MEDS: FAMOTIDINE (10MG/ML) 2ML VL IV SCH (21:45)
[2019-02-10] MEDS: traZODone HCL 50 MG TAB PO SCH (21:45)
[2019-02-10 22:17] VITALS: BP 132/83
[2019-02-11] MEDS: SODIUM CHLORIDE 0.9% 1,000 ML IV SCH ×2 (04:19→18:21)
[2019-02-11 05:39] VITALS: BP 120/79
[2019-02-11] MEDS: MORPHINE SULF INJ 2 MG/ML SYRINGE 1ML IV PRN ×5 (05:51→22:44)
[2019-02-11 06:54] LABS: INR 0.94 (0.9-1.15); Partial Thromboplastin Time 30.7 sec (23.64-32.05)
[2019-02-11 06:56] LABS: Basophils # (auto) 0 uL; Basophils % (auto) 0.8 % (0.0-2.0); Eosinophils # (auto) 0.2 uL; Eosinophils % (auto) 3.4 % (0.0-7.0); Hematocrit 41.4 % (41.0-53.0); Hemoglobin 14.3 g/dL (13.5-17.5); Lymphocytes # (auto) 2.1 uL; Lymphocytes % (auto) 33.8 % (10.0-50.0); Mean Corpuscular Hemoglobin 29.9 pg (28.0-32.0); Mean Corpuscular Hgb Conc. 34.4 g/dL (32.0-36.0); Mean Corpuscular Volume 86.9 fL (80.0-100.0); Monocytes # (auto) 0.4 uL; Neutrophils # (auto) 3.4 uL; Nucleated Red Blood Cells % 0.1 %; Platelet Count (auto) 182 10^3/uL (140-450); Red Blood Cells 4.77 10^6/uL (4.5-5.90); White Blood Cell 6.1 10^3/uL (4.4-10.8)
[2019-02-11 06:57] LABS: Calcium 8.6 mg/dL (8.5-10.1); Potassium 4.4 mmol/L (3.5-5.1)
[2019-02-11 06:59] LABS: BUN/Creatinine Ratio 14.1
--- NOTE | 2019-02-11 08:00 | NUR ---
Opening Note Assumed care of patient, he is A & O x4, patient is able to answer yes and no questions, he has a history of cerebral palsy and has garbled speech. Patient has no complaints at this time. Placed call light in hand, he answers yes when asked if he knows how to use it. Bed is in low, locked position, call light within reach. Will continue to monitor Q1h and PRN.
[2019-02-11 09:00] VITALS: BP 106/70
[2019-02-11] MEDS: FAMOTIDINE (10MG/ML) 2ML VL IV SCH ×2 (09:51→22:43)
[2019-02-11] MEDS: PARoxetine 20 MG TAB PO SCH (09:52)
--- NOTE | 2019-02-11 11:52 | NUR ---
Estimated needs based on CBW 70.3 kg-maintenance factors 6904-8922 kcal (23-25 kcal/kg) 56-70 g protein (0.8-1.0 g/kg) Addendum: 02/11/19 at [address] Amended: Links added.
[2019-02-11 13:00] VITALS: BP 95/58
[2019-02-11] MEDS: metroNIDAZOLE 500MG/100ML 100 ML IV SCH ×2 (14:21→22:43)
--- NOTE | 2019-02-11 15:13 | NUR ---
WOUND CARE NOTE: IN TO SEE PATIENT AT THIS TIME FOR SKIN INTEGRITY MONITORING. PATIENT RECENTLY ADMITTED TO [facility] WITH DIAGNOSIS OF CHOLELITHIASIS. CURRENT SUSANNAH SCORE IS 12. PATIENT HAS CEREBRAL PALSY. HE IS WHEELCHAIR/BED BOUND. PATIENT HAS CONTRACTED FEET NOTED. SKIN IS PINK, BLANCHABLE, WOUND FREE AT THIS TIME. OPTIFOAM GENTLE SACRAL DRESSING APPLIED PREVENTATIVE. SPECIALTY AIR MATTRESS ORDERED. PATIENT TO BE PLACED, PENDING DELIVERY BY [facility]. RECOMMEND: FREQUENT TURN SCHEDULE Q 2 HOURS, PRN CONDITION PERMITS, WITH PRESSURE REDISTRIBUTION USING PILLOWS/WEDGES, BID/PRN APPLICATION WITH MOISTURE BARRIER CREAM, OPTIFOAM GENTLE SACRAL DRESSING, SPECIALTY AIR MATTRESS, SKIN/WOUND CARE PLAN, DIETARY CONSULT, CONTINUED MONITORING BY WOUND CARE TEAM.
--- NOTE | 2019-02-11 16:05 | NUR ---
Specialty mattress delivered.
[2019-02-11 17:00] VITALS: BP 114/76
[2019-02-11 22:00] VITALS: BP 115/62
[2019-02-11] MEDS: traZODone HCL 50 MG TAB PO SCH (22:44)
[2019-02-12] VITALS (34 sets, daily range): BP systolic 76–121; BP diastolic 48–78
[2019-02-12] MEDS: MORPHINE SULF INJ 2 MG/ML SYRINGE 1ML IV PRN ×2 (03:47→08:37)
[2019-02-12] MEDS: metroNIDAZOLE 500MG/100ML 100 ML IV SCH ×3 (05:58→21:32)
[2019-02-12] MEDS: SODIUM CHLORIDE 0.9% 1,000 ML IV SCH ×2 (07:15→20:35)
--- NOTE | 2019-02-12 08:42 | NUR ---
PT SEEN BY DR. BELLO MADE AWARE PT IS REFUSING SURGERY, FAMILY CALLED SPOKE TO BROTHER LEELEE MADE AWARE, PAGED DR. HE, WAITING FOR CALL BACK. PRE-OP NURSE MADE AWARE.
--- NOTE | 2019-02-12 09:25 | NUR ---
BROTHER LEELEE TALK TO PT AND THEY BOTH AGREED TO PROCEED WITH THE SURGERY.
--- NOTE | 2019-02-12 09:28 | NUR ---
PT OFF FLOOR FOR HIDA SCAN.
[2019-02-12] MEDS: PARoxetine 20 MG TAB PO SCH (10:00)
[2019-02-12] MEDS: FAMOTIDINE (10MG/ML) 2ML VL IV SCH ×2 (10:00→21:32)
[2019-02-12] MEDS ORDERED: POVIDONE IODINE 5% TOPICAL CREAM TOP ONE (10:14)
--- NOTE | 2019-02-12 10:24 | NUR ---
Dr. Hand made aware pt and brother Johny both agreed to proceed with the planned surgery.
[2019-02-12] MEDS ORDERED: LIDOCAINE 1% (LOCAL ANESTH.) PF 5ml SDV ONE (11:48)
[2019-02-12] MEDS ORDERED: SUCCINYLCHOLINE CHLORIDE 20 MG/ML 10ML VIAL IV ONE (11:48)
--- NOTE | 2019-02-12 11:48 | NUR ---
PRE-OP NURSE SONIA CALLED PT WAS BROUGHT TO PRE-OP FROM NUCLEAR MEDICINE, BROTHER LEELEE USHERED BY PEDRITO ADAMS TO PRE-OP.
[2019-02-12] MEDS ORDERED: LEVOFLOXACIN 500MG 100 ML IV ONE (12:00)
[2019-02-12] MEDS ORDERED: ROCURONIUM 10MG/ML 10ML VIAL IV ONE (12:01)
[2019-02-12] MEDS ORDERED: PROPOFOL 10 MG/ML 20 ML IV ONE (12:03)
[2019-02-12] MEDS ORDERED: MIDAZOLAM HCL 1MG/1ML-2 ML VIAL ONE (12:03)
[2019-02-12] MEDS ORDERED: ePHEDrine SULFATE 50 MG/ML AMP ONE (12:24)
[2019-02-12] MEDS ORDERED: STERILE WATER 10 ML ONE (12:24)
[2019-02-12] MEDS ORDERED: fentaNYL CITRATE 100 MCG/2 ML VL ONE (12:26)
[2019-02-12] MEDS ORDERED: ePHEDrine SULFATE 50 MG/ML AMP IV PRN (12:30)
[2019-02-12] MEDS ORDERED: NALOXONE HCL 0.4 MG/ML VIAL IV PRN (12:30)
[2019-02-12] MEDS ORDERED: ONDANSETRON HCL 4 MG/2 ML VIAL IV PRN (12:30)
[2019-02-12] MEDS ORDERED: GLYCOPYRROLATE 0.2 MG/ML 1ML VIAL ONE (12:57)
[2019-02-12] MEDS ORDERED: NEOSTIGMINE 1 MG/ML INJ (10mg/10ML VIAL) ONE (12:57)
[2019-02-12] MEDS ORDERED: ONDANSETRON HCL 4 MG/2 ML VIAL ONE (13:23)
[2019-02-12] MEDS ORDERED: HYDROmorphone HCL 2 MG/ML VL ONE (13:23)
[2019-02-12] MEDS: HYDROmorphone HCL 2 MG/ML VL IV PRN ×5 (13:30→14:10)
[2019-02-12] MEDS: ONDANSETRON HCL 4 MG/2 ML VIAL IV PRN (13:35)
--- NOTE | 2019-02-12 14:11 | NUR ---
RECEIVED REPORT FROM KIARA VELIZ IN PACU
--- NOTE | 2019-02-12 14:23 | NUR ---
RECEIVED PT FROM PACU VIA BED,PT IS STILL DROWSY BUT AROUSABLE, NOTED 3 SMALL INCISION ON ABDOMEN CLEAN, DRY AND INTACT, BINDER IN PLACE, WILL CONTINUE TO MONITOR.
--- NOTE | 2019-02-12 16:30 | NUR ---
PAGED RT PT'S O2 SATURATION WAS 83% AND CONTINUES TO DROP TO 43 %, PT IS UNRESPONSIVE, HR 114BPM, BP 121/62MMHG. PT WAS PLACED ON OXYGEN MASK 15L, O2 SAT 94%, PT STILL UNRESPONSIVE. RT CAME AND PT PLACED ON NON REBREATHER, PT IS STILL UNRESPONSIVE, CALLED DR. BELLO, HE ORDERED NARCAN 1 MG IV ONE DOSE, HE ORDERED TO CALL HOSPITALIST IF PT WILL NOT RESPOND. CALLED CODE ASSIST.
[2019-02-12] MEDS ORDERED: NALOXONE HCL 0.4 MG/ML VIAL ONE (16:38)
--- NOTE | 2019-02-12 16:38 | NUR ---
CALLED CODE ASSIST CODE ASSIST TEAM ARRIVED, DR. BUENO AT BEDSIDE, PT INTUBATED. DR. BUENO ORDERED STAT HEAD CT.
[2019-02-12] MEDS ORDERED: NALOXONE HCL 1MG/ML 2ML SYRINGE IV ONE ×2 (16:45→17:15)
[2019-02-12] MEDS ORDERED: MIDAZOLAM HCL 5 MG/ML-1ML VIAL ONE (16:49)
[2019-02-12] MEDS: PROPOFOL 100 ML IV SCH ×2 (17:00→21:11)
--- NOTE | 2019-02-12 17:00 | NUR ---
REPORT CALLED TO KIARA DUGAN IN ICU.
--- NOTE | 2019-02-12 17:05 | NUR ---
PT TRANSPORTED TO RADIOLOGY FOR STAT CT SCAN.
[2019-02-12] MEDS ORDERED: PROPOFOL 100 ML IV ONE (17:06)
--- NOTE | 2019-02-12 17:10 | NUR ---
CALLED BROTHER LEELEE TEL# [phone], NO ANSWER, LEFT A MESSAGE TO CALL BACK.
[2019-02-12] MEDS ORDERED: NALOXONE HCL 0.4 MG/ML VIAL IV ONE (17:15)
[2019-02-12] MEDS ORDERED: MIDAZOLAM HCL 5 MG/ML-1ML VIAL IV ONE (17:15)
--- NOTE | 2019-02-12 17:15 | NUR ---
TELE PATIENT TRANSFER TO ICU S/P INTUBATION called regarding patient's respiratory status. Order received for intubation. Respiratory Therapist notified and at bedside. Patient/Family instructed on need for intubation and possible sedation while on ventilator. Patient intubated by Hugo with 8.0 ETT, 24 at the lip, and OGT/NGT placed. CXR ordered to confirm placement. Report received, care endorsed to Susie CRAIG. Patient take to CT and then transferred to ICU 107 via bed with RN and RT. Patient connected to monitor and ventilator. Physical assessment performed, vital stable at this time. Medications given as follows: Diprivan and NS
--- NOTE | 2019-02-12 17:30 | NUR ---
Conrad catheter insertion Patient assessed and determined to be in need of Conrad catheter. Order obtained from Hugo DANG. Patient family educated on catheter and reason for insertion. All questions answered. Conrad catheter 16F Coude inserted with clean sterile technique. Patient tolerated well.
--- NOTE | 2019-02-12 18:00 | NUR ---
Family updated on pt status Family of ANA LAURA COREAS updated on patient's status and condition. All questions and concerns addressed. Johny verbalized understanding.
--- NOTE | 2019-02-12 18:10 | NUR ---
ROLANDA BUENO MD AT BEDSIDE FOR CENTRAL LINE PLACEMENT. IV PLACED RIGHT IJ, CXR AT BEDSIDE TO CONFIRM PLACEMENT. PT TOLERATED WELL. PATIENT BROTHER LEELEE PRESENT TO SIGN CONSENT.
--- NOTE | 2019-02-12 19:15 | NUR ---
REPORT Bedside report given to Aguilar RN, care endorsed. Vitals stable.
--- NOTE | 2019-02-12 19:15 | NUR ---
INITIAL ASSESSMENT ASSUMED CARE OF PATIENT INTUBATED AND SEDATED, OPENS EYES TO TACTILE STIMULATION, UNABLE TO TRACK, PUPILS 5 AND SLUGGISH, UNABLE TO FOLLOW SIMPLE COMMANDS, OTHERWISE UNRESPONSIVE. COUGH AND GAG PRESENT. IVS PATENT. SINUS TACH AT 108 ON RETAIL AIDE AND MAP ABOVE 65. RESPIRATIONS EVEN AND UNLABORED, TOLERATING THE VENTILATOR, LUNG SOUNDS CLEAR THROUGHOUT. OG TUBE AUSCULTATED FOR PLACEMENT. ABD ROUND AND FIRM, WITH INCISION SITES CDI AND ABD BINDER IN PLACE. COOLEY CATHETER PATENT AND DRAINING YELLOW URINE TO GRAVITY. SKIN INTACT WITH BONY PROMINENCES OFFLOADED WITH PILLOWS AND SCD'S BILATERALLY. NO INDICATION OF PAIN OBSERVED. BED IN LOWEST LOCKED POSITION. BED IN FULL VIEW OF NURSES STATION. WILL CONTINUE TO MONITOR. VSS.
[2019-02-12] MEDS: traZODone HCL 50 MG TAB PO SCH (21:32)
[2019-02-13] VITALS (92 sets, daily range): BP systolic 87–128; BP diastolic 36–89
[2019-02-13] MEDS: PROPOFOL 100 ML IV SCH ×3 (00:40→08:28)
--- NOTE | 2019-02-13 04:00 | NUR ---
BATH/ PARTIAL LINEN CHANGE DONE AT THIS TIME WITH HCG WIPES.
[2019-02-13 04:18] LABS: Basophils # (auto) 0 uL; Basophils % (auto) 0.1 % (0.0-2.0); Eosinophils # (auto) 0 uL; Hematocrit 38.5 % (41.0-53.0); Hemoglobin 13.1 g/dL (13.5-17.5); Lymphocytes # (auto) 0.9 uL; Lymphocytes % (auto) 9.2 % (10.0-50.0); Mean Corpuscular Hgb Conc. 34.1 g/dL (32.0-36.0); Monocytes # (auto) 0.8 uL; Monocytes % (auto) 7.7 % (0.0-12.0); Neutrophils # (auto) 8.2 uL; Platelet Count (auto) 181 10^3/uL (140-450); Red Blood Cells 4.37 10^6/uL (4.5-5.90); Red Cell Distribution Width 14.7 % (11.8-14.3); White Blood Cell 9.9 10^3/uL (4.4-10.8)
[2019-02-13] MEDS: metroNIDAZOLE 500MG/100ML 100 ML IV SCH ×3 (05:13→22:05)
--- NOTE | 2019-02-13 07:15 | NUR ---
REPORT RECEIVED FROM POWER DRIVEN BRUSH MAKER NURSE. PATIENT RESTING IN BED AT THIS TIME. RESPIRATIONS EVEN AND UNLABORED, INTUBATED AND SEDATED. BED IN LOW POSITION .WILL CONTINUE TO MONITOR.
--- NOTE | 2019-02-13 07:59 | NUR ---
DR Michele BELLO AT BEDSIDE TO ASSESS PATIENT AND DISCUSS PLAN OF CARE. PER MD INCREASE FLUIDS TO 125ML/HR. ALL ORDERS NOTED IN CHART.
[2019-02-13 08:05] LABS: Albumin 3.4 g/dL (3.4-5.0); BUN/Creatinine Ratio 14.9; Calcium 8.3 mg/dL (8.5-10.1)
[2019-02-13 08:08] LABS: Bilirubin, Total 0.7 mg/dL (0.2-1.0); Total Protein 6.8 g/dL (6.4-8.2)
--- NOTE | 2019-02-13 08:15 | NUR ---
Respiratory note: VENTILATOR SETTINGS CHANGED PER DR. Jose Eduardo BELLO. VENT SETTINGS ARE NOW AC RR 12/VT 450/ PEEP +5 AND FIO2 30%. PATIENT IS TOLERATING CHANGE WELL. KIARA SANTANA IS AWARE, WILL DRAW ABG AT [address] BELLO.
[2019-02-13] MEDS ORDERED: CLINDAMYCIN 600MG IV 50 ML IV SCH (09:00)
[2019-02-13] MEDS: FAMOTIDINE (10MG/ML) 2ML VL IV SCH ×2 (09:31→22:04)
[2019-02-13] MEDS: PARoxetine 20 MG TAB PO SCH (09:31)
[2019-02-13] MEDS: SODIUM CHLORIDE 0.9% 1,000 ML IV SCH ×3 (09:52→23:13)
--- NOTE | 2019-02-13 11:09 | NUR ---
DR FARIA AT BEDSIDE TO ASSESS PATIENT AND DISCUSS PLAN OF CARE. PER MD CPAP PATIENT WHEN AWAKE.
--- NOTE | 2019-02-13 11:45 | NUR ---
PATIENT PLACED ON CPAP TRIAL TOLERATING WELL. WILL CONTINUE TO MONITOR.
[2019-02-13] MEDS: LEVOFLOXACIN 500MG 100 ML IV SCH (11:50)
--- NOTE | 2019-02-13 11:50 | NUR ---
Respiratory note: CPAP TRIAL INITIATED, PATIENT IS CURRENTLY ON VENT SETTINGS OF PSV 7/ PEEP +5/ 30% FIO2. PATIENT IS CURRENTLY TOLERATING CPAP TRIAL. KIARA SANTANA IS AWARE, WILL DRAW ABG IN ONE HOUR.
--- NOTE | 2019-02-13 13:10 | NUR ---
Respiratory note: PATIENT EXTUBATED PER DR. FARIA, AND PLACED ON 8 L COOL MIST AEROSOL ON 30%. STRIDOR HEARD, AND RACEMICEPI WAS GIVEN. NO OTHER RESPIRATORY DISTRESS NOTED OR STATED. WILL CONTINUE TO MONITOR.
--- NOTE | 2019-02-13 13:12 | NUR ---
PATIENT EXTUBATED PER MD ORDER AND PLACED ON COOL MIST MASK. PATIENT TOLERATING WELL. WILL CONTINUE TO MONITOR.
[2019-02-13] MEDS ORDERED: EPINEPHrine HCL 0.5 ML NEB NEB ONE (13:16)
[2019-02-13] MEDS ORDERED: EPINEPHrine HCL 0.5 ML NEB ONE (13:17)
--- NOTE | 2019-02-13 15:20 | NUR ---
PATIENT PLACED ON 2 LITERS NASAL CANULA. TOLERATING WELL, SATURATIONS 97%.
[2019-02-13] MEDS: MORPHINE SULF INJ 2 MG/ML SYRINGE 1ML IV PRN ×3 (15:23→22:04)
--- NOTE | 2019-02-13 15:23 | NUR ---
PATIENT COMPLAINS OF PAIN 8/10 IN ABDOMEN. ADMINISTERED PAIN MEDICATION ORDERED. PATIENT TOLERATED WELL. WILL CONTINUE TO MONITOR.
--- NOTE | 2019-02-13 16:50 | NUR ---
SPOKE TO DR FARIA ABOUT PATIENTS COARSE LUNG SOUNDS. PER MD START PATIENT ON NEBULIZER TREATMENTS. ALL ORDERS NOTED IN CHART.
--- NOTE | 2019-02-13 18:37 | NUR ---
PAGED DR REYES PATIENT COMPLAINING OF PAIN 8-01/20. AWAITING CALL BACK.
--- NOTE | 2019-02-13 18:40 | NUR ---
SPOKE TO DR REYES ABOUT PATIENTS PAIN. PER MD ADMINISTER MORPHINE 2 MG IVP X 1 DOSE. CONTINUE PAIN MEDICATIONS ORDERED.
[2019-02-13] MEDS: ACETYLCYSTEINE 10 %(100MG/ML) SOL 4ML NEB SCH (18:43)
[2019-02-13] MEDS: IPRATROPIUM BROM 0.5 MG/2.5ML INH SOL NEB SCH (18:44)
[2019-02-13] MEDS: ALBUTEROL SULF 2.5 MG/0.5ML(0.5%) NEB SOLN NEB SCH (18:44)
[2019-02-13] MEDS ORDERED: MORPHINE SULF INJ 2 MG/ML SYRINGE 1ML ONE (18:56)
[2019-02-13] MEDS ORDERED: MORPHINE SULF INJ 2 MG/ML SYRINGE 1ML IV ONE (19:00)
--- NOTE | 2019-02-13 19:20 | NUR ---
INITIAL ASSESSMENT ASSUMED CARE OF PATIENT IN BED AWAKE AND ALERT. PUPILS 3 AND BRISK, PATIENT ABLE TO NOD YES AND NOW TO SIMPLE QUESTIONS. COMFORT MEASURES PROVIDED AT THIS TIME. SR AT 98 BPM ON CARDIC MONITOR. RESPIRATIONS EVEN AND UNLABORED WITH SYMMETRICAL CHEST RISE AND FALL, NO SOB NOTED OE DISTRESS NOTED. O2 SAT 95% ON 2 L NC. IVS PATENT AND SALINE FLUSHED. ABD INCISIONS X2 CDI WITH ABD BINDER ON. COOLEY PATENT AND DRAINING ROSITA LIQUID TO GRAVITY. SKIN INTACT WITH PILLOWS OFFLOADING BONY PROMINENCES AND FOR COMFORT. ABNORMAL FLEXION OF LEGS, PLACED IN A POSITION OF COMFORT FOR PT WITH PILLOWS OFFLOADING AREAS OF PRESSURE. BED IN LOWEST LOCKED POSITION. EDUCATED ON USE OF CALL JANG AND PLACED WITHIN REACH. BED IN LOWEST LOCKED POSITION AND IN FULL VIEW OF NURSES STATION. WILL CONTINUE TO MONITOR.
[2019-02-13] MEDS: traZODone HCL 50 MG TAB PO SCH (22:00)
[2019-02-14] VITALS (14 sets, daily range): BP systolic 84–140; BP diastolic 46–88
[2019-02-14] MEDS: IPRATROPIUM BROM 0.5 MG/2.5ML INH SOL NEB SCH ×4 (00:11→18:47)
[2019-02-14] MEDS: ALBUTEROL SULF 2.5 MG/0.5ML(0.5%) NEB SOLN NEB SCH ×4 (00:11→18:47)
[2019-02-14] MEDS: ACETYLCYSTEINE 10 %(100MG/ML) SOL 4ML NEB SCH ×4 (00:12→18:47)
--- NOTE | 2019-02-14 04:00 | NUR ---
PARTIAL LINEN CHANGE AND BED BATH WITH HCG WIPES GIVEN AT THIS TIME. PT TOLERATED WELL. SKIN ASSESSED FOR ANY CHANGES. WILL CONTINUE TO MONITOR.
[2019-02-14 04:22] LABS: Basophils # (auto) 0 uL; Basophils % (auto) 0.3 % (0.0-2.0); Eosinophils # (auto) 0.1 uL; Eosinophils % (auto) 1.5 % (0.0-7.0); Hematocrit 35.7 % (41.0-53.0); Hemoglobin 12.2 g/dL (13.5-17.5); Lymphocytes # (auto) 1.6 uL; Lymphocytes % (auto) 20.6 % (10.0-50.0); Mean Corpuscular Hemoglobin 30.1 pg (28.0-32.0); Mean Corpuscular Volume 88.4 fL (80.0-100.0); Monocytes # (auto) 0.7 uL; Monocytes % (auto) 9.6 % (0.0-12.0); Neutrophils # (auto) 5.2 uL; Platelet Count (auto) 158 10^3/uL (140-450); Red Blood Cells 4.04 10^6/uL (4.5-5.90); Red Cell Distribution Width 14.9 % (11.8-14.3); White Blood Cell 7.6 10^3/uL (4.4-10.8)
[2019-02-14] MEDS: MORPHINE SULF INJ 2 MG/ML SYRINGE 1ML IV PRN ×6 (04:32→20:43)
--- NOTE | 2019-02-14 05:00 | NUR ---
MORPHINE GIVEN 2X 2042 AND 431 FOR ABD PAIN >7 ON 0-10 SCALE. MISTAKEN ENTRY IN EMAR. PAIN REASSESSED. PAIN AT TOLERABLE LEVEL OF 2 ON 0-10 SCALE. WILL CONTINUE TO MONITOR.
[2019-02-14 05:03] LABS: Alanine Aminotransferase 43 U/L (16-61); Albumin 3.1 g/dL (3.4-5.0); Alkaline Phosphatase 86 U/L (45-117); Anion Gap 6 (5-15); Aspartate Aminotransferase 84 U/L (15-37); BUN/Creatinine Ratio 11.9; Bilirubin, Total 1.1 mg/dL (0.2-1.0); Blood Urea Nitrogen 8 mg/dL (7-18); Calcium 7.8 mg/dL (8.5-10.1); Carbon Dioxide 26 mmol/L (21-32); Chloride 108 mmol/L (98-107); GFR African American 158 mL/min; GFR Non-African American 130 mL/min; Glucose 86 mg/dL (74-106); Potassium 3.9 mmol/L (3.5-5.1); Sodium 140 mmol/L (136-145); Total Protein 6.3 g/dL (6.4-8.2)
[2019-02-14] MEDS: metroNIDAZOLE 500MG/100ML 100 ML IV SCH ×3 (05:16→21:50)
--- NOTE | 2019-02-14 07:30 | NUR ---
BEDSIDE Dr. Hand bedside. New orders received.
--- NOTE | 2019-02-14 07:50 | NUR ---
OPENING Report received from Aguilar CRAIG. Care initiated and initial assessment completed.
--- NOTE | 2019-02-14 09:20 | NUR ---
PHYSICAL THERAPY Physical therapist Rancho at the bedside. Got patient in sitting position at the edge of the bed. Patient too unsteady to get into the chair. Patient tolerated well.
[2019-02-14] MEDS: FAMOTIDINE (10MG/ML) 2ML VL IV SCH ×2 (09:50→21:27)
[2019-02-14] MEDS: LEVOFLOXACIN 500MG 100 ML IV SCH (09:50)
[2019-02-14] MEDS: PARoxetine 20 MG TAB PO SCH (09:50)
[2019-02-14] MEDS: SODIUM CHLORIDE 0.9% 1,000 ML IV SCH ×2 (09:51→20:43)
--- NOTE | 2019-02-14 11:03 | NUR ---
ICE CHIPS Patient asking for water, allowed ice chips to moisten patients mouth. Tolerated well.
--- NOTE | 2019-02-14 11:06 | NUR ---
PAGED Paged Dr. Del Real to update. Awaiting call back.
--- NOTE | 2019-02-14 11:30 | NUR ---
REPORT GIVEN Report given to bambi Franco.
--- NOTE | 2019-02-14 11:44 | NUR ---
DRESSING CHANGED Changed right IJ TLC dressing using sterile technique. Patient tolerated well, was able to hold head in steady position.
--- NOTE | 2019-02-14 12:07 | NUR ---
Patient received to Room 220a. Patient is on specialty bed. Will continue to monitor.
--- NOTE | 2019-02-14 13:41 | NUR ---
Nutrition Follow-up Notes Wt.: 87.3 kg as of yesterday Pt's s/p fransisca batres, was intubated (02/12/10), just successfully extubated yesterday, on oxygen via nasal cannula, no signs of distress noted earlier. Unable to obtain complete weight and diet hx d/t pt's garbled speech, however could understand and communicate through gestures. 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 Pt's currently NPO, likely to resume oral diet with active order for Clear Liquid diet at this time. Est. Needs based on CBW 70.3 kg :5015-8586 kcal (23-25 kcal/kg), 56-70 g protein (0.8-1.0 g/kg).Will continue to monitor pertinent labs and reassess nutrient need prn Labs: Cl 108 H, Cr 0.67 L, Ca 7.8 L, Tot klaudia 1.1 H, AST 84 H, Tpro 6.3 L, Alb 3.1 L Skin: Deandre scale 12, high risk, pt's anterior medial abdomen incision dry and intact per test manager. GI: Pt's no bowel activity since 02/11/19 per test manager. PES: Increased nutrient needs r/t altered GI functions aeb s/p surgery/extubation, mild hypoalbuminemia, NPO/Clear Liquid diet Altered nutrition related lab values r/t current/chronic medical condition aeb hyperchloremia, hypocalcemia, elev. AST, hyperbilirubinemia and mild hypoalbuminemia Will continue to monitor PO intake, skin status, pertinent labs and weight trend. F/u in 2 to 3 days. Rec.: 1.) Advance gradually oral diet (Low Fat-per ST's diet texture recommendation) when medically appropriate. 2.) Continue close supervision during meals. 3.) If Albumin continues trending down, consider Prostat 1 pkt BID. 4.) Refer pt to RD for further nutrition education and weight monitoring upon discharge. 5.) Continue current plan of care.
--- NOTE | 2019-02-14 19:40 | NUR ---
Opening Shift Note Assumed care of patient, patient lying in bed with HOB and eyes open. Patient is nonverbal but nods to yes and no questions. Patient is s/p laparoscopic cholecystectomy, abd incision x3 with steri-strips clean, dry and intact, active bowel sounds, tender upon palpations. Abd binder on. Conrad intact and draining to gravity with clear yellow urine. Patient turned with max assist, sacrum intact, no redness noted. Patient on specialty air mattress. SCD's applied to bilateral legs with machine on. Central line triple lumen to right IJ intact and patent, IV to left AC 22g intact and patent. Patient on oxygen at 2L via NC with even and unlabored respirations. No S/S of distress or SOB. Bed low locked position with side rails up x 3 and call light within reach, bed alarm on. Instructed on POC and to call for assist PRN, will continue to monitor for changes Q1hr and PRN.
[2019-02-14] MEDS: traZODone HCL 50 MG TAB PO SCH (21:27)
[2019-02-15] MEDS: ACETYLCYSTEINE 10 %(100MG/ML) SOL 4ML NEB SCH ×3 (00:51→11:51)
[2019-02-15] MEDS: IPRATROPIUM BROM 0.5 MG/2.5ML INH SOL NEB SCH ×3 (00:52→11:50)
[2019-02-15] MEDS: ALBUTEROL SULF 2.5 MG/0.5ML(0.5%) NEB SOLN NEB SCH ×3 (00:54→11:50)
[2019-02-15] MEDS: MORPHINE SULF INJ 2 MG/ML SYRINGE 1ML IV PRN ×3 (02:35→14:21)
[2019-02-15] MEDS: SODIUM CHLORIDE 0.9% 1,000 ML IV SCH (05:02)
[2019-02-15 05:23] VITALS: BP 155/73
[2019-02-15] MEDS: metroNIDAZOLE 500MG/100ML 100 ML IV SCH ×2 (05:45→14:14)
--- NOTE | 2019-02-15 07:05 | NUR ---
Closing Note patient resting in bed with oxygen on at 2L via NC, even and unlabored respirations. No s/s of distress or SOB. Abd binder on. Conrad intact and draining to gravity. IV to left AC intact. Right IJ intact with NS infusing at 125ml/hr. Bed low locked position with side rails up x 3 and call light within reach, bed alarm on. Endorsed care to day shift RN.
[2019-02-15 09:00] VITALS: BP 111/80
[2019-02-15] MEDS: PARoxetine 20 MG TAB PO SCH (09:13)
[2019-02-15] MEDS: LEVOFLOXACIN 500MG 100 ML IV SCH (09:13)
[2019-02-15] MEDS: FAMOTIDINE (10MG/ML) 2ML VL IV SCH (09:20)
[2019-02-15 10:11] LABS: Basophils # (auto) 0 uL; Basophils % (auto) 0.4 % (0.0-2.0); Eosinophils # (auto) 0.1 uL; Eosinophils % (auto) 1.7 % (0.0-7.0); Hematocrit 38.2 % (41.0-53.0); Hemoglobin 12.9 g/dL (13.5-17.5); Lymphocytes # (auto) 1.2 uL; Lymphocytes % (auto) 18.5 % (10.0-50.0); Mean Corpuscular Hemoglobin 29.8 pg (28.0-32.0); Mean Corpuscular Hgb Conc. 33.7 g/dL (32.0-36.0); Mean Corpuscular Volume 88.5 fL (80.0-100.0); Monocytes # (auto) 0.5 uL; Monocytes % (auto) 7.9 % (0.0-12.0); Neutrophils # (auto) 4.7 uL; Neutrophils % (auto) 71.5 % (37.0-80.0); Platelet Count (auto) 174 10^3/uL (140-450); Red Blood Cells 4.32 10^6/uL (4.5-5.90); Red Cell Distribution Width 14.9 % (11.8-14.3); White Blood Cell 6.6 10^3/uL (4.4-10.8)
[2019-02-15 10:35] LABS: Albumin 3.3 g/dL (3.4-5.0); Calcium 8.4 mg/dL (8.5-10.1); Potassium 3.8 mmol/L (3.5-5.1)
[2019-02-15 10:39] LABS: BUN/Creatinine Ratio 12.7; Bilirubin, Total 1.1 mg/dL (0.2-1.0); Total Protein 7.1 g/dL (6.4-8.2)
[2019-02-15 13:00] VITALS: BP 134/87
--- NOTE | 2019-02-15 14:04 | NUR ---
PER ORDER, INDWELLING COOLEY CATHETER REMOVED THIS MORNING, PATIENT HAS VOIDED, INCONTINENCE NOTED. BROTHER LEELEE CALLED THIS MORNING, MADE AWARE OF DISCHARGE ORDER, PER BROTHER WILL COME AND ART PROFESSOR PATIENT BETWEEN 4-5 PM THIS AFTERNOON.
[2019-02-15] MEDS ORDERED: MUPIROCIN 2% OINT 15gm or 22gm EACHNOSTRI SCH (15:08)
--- NOTE | 2019-02-15 17:24 | NUR ---
Discharge instructions given as ordered. Encourage to follow up with PMD as instructed. All questions and concerns addressed. Patient verbalized understanding. Medication reconciliation form completed and copy given to patient. IV removed with catheter intact, pressure dressing applied. Patient taken to vehicle via wheelchair with all personal belongings, accompanied family member. No distress noted at time of departure.
== END 2019-02-15 17:20 | disposition home or self-care (01) | DRG 417 ==
LOC: ER 11:08 → EDBD 11:08 → TELE-EAST 11:09 → ICU WEST 02-12 17:20 → TELE-CENTR 02-14 12:07 → CENTRAL 02-14 15:53
PROVIDERS: ADMIT Nurse Practitioner Acute Care; ATTEND Family Medicine
PROC: 5A1935Z Respiratory Ventilation, Less than 24 Consecutive Hours (ICD-10-PCS; 2019-02-12)
PROC: 0BH17EZ Insertion of Endotracheal Airway into Trachea, Via Natural or Artificial Opening (ICD-10-PCS; 2019-02-12)
PROC: 0FT44ZZ Resection of Gallbladder, Percutaneous Endoscopic Approach (ICD-10-PCS; principal; 2019-02-12 12:07)
DX: K80.12 Calculus of gallbladder with acute and chronic cholecystitis without obstruction (principal); J96.01 Acute respiratory failure with hypoxia; J69.0 Pneumonitis due to inhalation of food and vomit; J96.02 Acute respiratory failure with hypercapnia; E87.2 Acidosis; J98.11 Atelectasis; J45.901 Unspecified asthma with (acute) exacerbation; J20.9 Acute bronchitis, unspecified; I10 Essential (primary) hypertension; K27.9 Peptic ulcer, site unspecified, unspecified as acute or chronic, without hemorrhage or perforation; Z79.899 Other long term (current) drug therapy; Z87.11 Personal history of peptic ulcer disease; Z82.49 Family history of ischemic heart disease and other diseases of the circulatory system; Z83.3 Family history of diabetes mellitus; Z88.0 Allergy status to penicillin
CPT/HCPCS: 36415; 36600; 70450; 71045; 74176; 76705; 78226; 80048; 80053; 81001; 82247; 82805; 82962; 83690; 85025; 85610; 85730; 86850; 86900; 86901; 87070; 87077; 87081; 87186; 87205; 94002; 94003; 94640; 94761; 96361; 96365; 96375; 96376; G0378; J0330; J1956; J2250; J2405; J2704; J3490

== ENCOUNTER 2019-12-19 20:05 | Inpatient (IN) | payer MEDICARE, MEDICAID ==
[~2019-12-19] VITALS: Ht 165.1 cm; Wt 84.5 kg
[2019-12-19 22:32] LABS: Basophils # (auto) 0 10 ^3/uL (0-0.2); Basophils % (auto) 0.6 % (0.0-2.0); Eosinophils # (auto) 0.3 10 ^3/uL (0-0.8); Eosinophils % (auto) 3.4 % (0.0-7.0); Hematocrit 43.1 % (41.0-53.0); Hemoglobin 14.1 g/dL (13.5-17.5); Lymphocytes # (auto) 2.8 10 ^3/uL (0.4-5.4); Lymphocytes % (auto) 37.6 % (10.0-50.0); Mean Corpuscular Hemoglobin 28.7 pg (28.0-32.0); Mean Corpuscular Hgb Conc. 32.8 g/dL (32.0-36.0); Mean Corpuscular Volume 87.6 fL (80.0-100.0); Monocytes # (auto) 0.5 10 ^3/uL (0-1.3); Monocytes % (auto) 7.1 % (0.0-12.0); Neutrophils # (auto) 3.8 10 ^3/uL (1.6-8.6); Neutrophils % (auto) 51.3 % (37.0-80.0); Nucleated Red Blood Cells % 0.1 %; Platelet Count (auto) 198 10^3/uL (140-450); Red Blood Cells 4.92 10^6/uL (4.5-5.90); Red Cell Distribution Width 15.2 % (11.8-14.3); White Blood Cell 7.4 10^3/uL (4.4-10.8)
[2019-12-19 22:49] LABS: Albumin 3.9 g/dL (3.4-5.0); Anion Gap 4 (5-15); Blood Urea Nitrogen 16 mg/dL (7-18); Calcium 8.4 mg/dL (8.5-10.1); Carbon Dioxide 25 mmol/L (21-32); Chloride 106 mmol/L (98-107); Glucose 90 mg/dL (74-106); Potassium 3.7 mmol/L (3.5-5.1); Sodium 135 mmol/L (136-145)
[2019-12-19 22:55] LABS: Alanine Aminotransferase 22 U/L (16-61); Alkaline Phosphatase 105 U/L (45-117); Aspartate Aminotransferase 12 U/L (15-37); BUN/Creatinine Ratio 19.3; Bilirubin, Total 0.4 mg/dL (0.2-1.0); GFR African American 123 mL/min; GFR Non-African American 101 mL/min; Total Protein 7.8 g/dL (6.4-8.2)
[2019-12-20] MEDS ORDERED: ONDANSETRON HCL 4 MG/2 ML VIAL IV ONE (01:00)
[2019-12-20] MEDS ORDERED: MORPHINE SULFATE 4 MG/ML SYR/VIAL IV ONE (01:00)
[2019-12-20] MEDS ORDERED: NITROGLYCERIN 0.4 MG SL TAB SL PRN (07:15)
[2019-12-20] MEDS ORDERED: MORPHINE SULF INJ 2 MG/ML SYRINGE 1ML IV PRN (07:15)
[2019-12-20] MEDS ORDERED: ACETAMINOPHEN 325 MG TAB PO PRN (07:15)
[2019-12-20 09:00] VITALS: BP 137/81
[2019-12-20 09:31] VITALS: BP 137/81
[2019-12-20] MEDS: PARoxetine 20 MG TAB PO SCH (10:00)
[2019-12-20] MEDS ORDERED: PANTOPRAZOLE 40 MG TAB PO SCH (10:00)
[2019-12-20] MEDS ORDERED: ASPirin 81 mg TAB PO SCH (10:00)
[2019-12-20] MEDS ORDERED: CLOPIDOGREL BISULFATE 75 MG TAB PO SCH (10:00)
[2019-12-20] MEDS: DOCUSATE SOD 100 MG CAP PO SCH (10:00)
[2019-12-20] MEDS: CARVEDILOL 3.125 MG TAB PO SCH ×2 (10:31→22:00)
[2019-12-20] MEDS: LISINOPRIL 5 MG TAB PO SCH (10:32)
[2019-12-20] MEDS ORDERED: levoFLOXacin 500MG 100 ML IV ONE (12:15)
[2019-12-20 13:00] VITALS: BP 156/89
[2019-12-20] MEDS: MORPHINE SULF INJ 2 MG/ML SYRINGE 1ML IV PRN ×2 (13:05→20:07)
[2019-12-20] MEDS: GABAPENTIN 100 MG CAP PO SCH ×2 (14:03→21:19)
[2019-12-20] MEDS: traZODone HCL 50 MG TAB PO SCH ×2 (16:09→21:19)
[2019-12-20 17:00] VITALS: BP 103/64
[2019-12-20 22:00] VITALS: BP 101/55
[2019-12-20] MEDS ORDERED: TEMAZEPAM 15 MG CAP PO SCH (22:00)
[2019-12-20] MEDS ORDERED: ATORVASTATIN 20 MG TAB PO SCH (22:00)
[2019-12-21 03:04] VITALS: BP 101/55
[2019-12-21] MEDS: MORPHINE SULF INJ 2 MG/ML SYRINGE 1ML IV PRN ×2 (03:04→09:36)
[2019-12-21 05:00] VITALS: BP 99/64
[2019-12-21] MEDS: GABAPENTIN 100 MG CAP PO SCH ×2 (05:26→14:33)
[2019-12-21] MEDS: traZODone HCL 50 MG TAB PO SCH ×2 (08:30→16:53)
[2019-12-21] MEDS: CARVEDILOL 3.125 MG TAB PO SCH (09:35)
[2019-12-21] MEDS: PARoxetine 20 MG TAB PO SCH (09:35)
[2019-12-21] MEDS: DOCUSATE SOD 100 MG CAP PO SCH (09:35)
[2019-12-21] MEDS: LISINOPRIL 5 MG TAB PO SCH (09:36)
[2019-12-21] MEDS ORDERED: OMEPRAZOLE 20MG/10ML ORAL SUSP PO SCH (10:00)
[2019-12-21] MEDS ORDERED: levoFLOXacin 500MG 100 ML IV SCH (10:00)
[2019-12-21] MEDS ORDERED: HYDROcodone-ACET 5/325MG TAB PO PRN (10:30)
[2019-12-21 12:30] VITALS: BP 95/63
[2019-12-21 13:31] VITALS: BP 95/63
[2019-12-21 16:51] VITALS: BP 99/46
== END 2019-12-21 18:36 | disposition home or self-care (01) | DRG 313 ==
LOC: EDBD 20:05 → ER 20:05 → TELE 20:06 → TELE-CENTR 12-20 08:45
PROVIDERS: ADMIT Hospitalist; ATTEND Family Medicine
DX: R07.89 Other chest pain (principal); J18.9 Pneumonia, unspecified organism; F41.9 Anxiety disorder, unspecified; E66.9 Obesity, unspecified; E78.5 Hyperlipidemia, unspecified; G35 Multiple sclerosis; G62.9 Polyneuropathy, unspecified; G80.9 Cerebral palsy, unspecified; I10 Essential (primary) hypertension; Z74.01 Bed confinement status; Z82.49 Family history of ischemic heart disease and other diseases of the circulatory system; Z83.3 Family history of diabetes mellitus; Z88.0 Allergy status to penicillin; Z90.49 Acquired absence of other specified parts of digestive tract; Z79.899 Other long term (current) drug therapy; Z68.31 Body mass index [BMI] 31.0-31.9, adult
CPT/HCPCS: 36415; 71045; 80053; 83880; 84484; 85025; 92610; 93005; G0378; J1956; J2405

== ENCOUNTER 2021-08-04 17:27 | Inpatient (IN) | payer MEDICARE, MEDICAID ==
[~2021-08-04] VITALS: Ht 165.1 cm; Wt 81.0 kg
[~2021-08-04 17:27] MED LIST changes: +TEMA15CA2 PO; -TEMA15CA91 PO
[2021-08-04] MEDS ORDERED: IPRATROPIUM BROM 0.5 MG/2.5ML INH SOL NEB ONE (18:15)
[2021-08-04] MEDS ORDERED: ALBUTEROL SULF 2.5 MG/0.5ML(0.5%) NEB SOLN NEB ONE (18:15)
[2021-08-04 19:04] LABS: Basophils # (auto) 0 10 ^3/uL (0-0.2); Basophils % (auto) 0.3 % (0.0-2.0); Eosinophils # (auto) 0.1 10 ^3/uL (0-0.8); Eosinophils % (auto) 0.5 % (0.0-7.0); Hematocrit 42.7 % (41.0-53.0); Hemoglobin 14.5 g/dL (13.5-17.5); Lymphocytes # (auto) 2.3 10 ^3/uL (0.4-5.4); Lymphocytes % (auto) 19.7 % (10.0-50.0); Mean Corpuscular Hemoglobin 29.2 pg (28.0-32.0); Mean Corpuscular Hgb Conc. 33.9 g/dL (32.0-36.0); Mean Corpuscular Volume 86.3 fL (80.0-100.0); Monocytes # (auto) 0.8 10 ^3/uL (0-1.3); Monocytes % (auto) 6.4 % (0.0-12.0); Neutrophils # (auto) 8.6 10 ^3/uL (1.6-8.6); Neutrophils % (auto) 73.1 % (37.0-80.0); Nucleated Red Blood Cells % 0.1 %; Red Blood Cells 4.96 10^6/uL (4.5-5.90); Red Cell Distribution Width 14.8 % (11.8-14.3); White Blood Cell 11.7 10^3/uL (4.4-10.8)
[2021-08-04 19:24] LABS: Albumin 4.3 g/dL (3.4-5.0); BUN/Creatinine Ratio 12.1; Calcium 9.2 mg/dL (8.5-10.1); Magnesium 2.4 mg/dL (1.6-2.6); Potassium 4.3 mmol/L (3.5-5.1)
[2021-08-04 19:28] LABS: Bilirubin, Total 1.6 mg/dL (0.2-1.0)
[2021-08-04 19:59] LABS: INR 1.02 (0.9-1.15); Partial Thromboplastin Time 24.4 sec (23.6-33.0)
[2021-08-04] MEDS ORDERED: levoFLOXacin 750MG 150 ML IV ONE (21:30)
[2021-08-04] MEDS ORDERED: ACETAMINOPHEN 325 MG TAB PO PRN (22:30)
[2021-08-04] MEDS ORDERED: DOCUSATE SOD 100 MG CAP PO PRN (22:30)
[2021-08-04] MEDS ORDERED: NITROGLYCERIN 0.4 MG SL TAB SL PRN (22:30)
[2021-08-04] MEDS ORDERED: HYDROcodone-ACET 5/325MG TAB PO PRN (22:30)
[2021-08-04 22:58] VITALS: BP 143/88
[2021-08-04 23:14] LABS: Lactic Acid w/Reflex 2.4 mmol/L (0.4-2.0)
[2021-08-05] VITALS (38 sets, daily range): BP systolic 83–145; BP diastolic 50–94
[2021-08-05] MEDS: MORPHINE SULFATE INJECTION 2 MG/ML SYRG IV PRN (00:28)
[2021-08-05] MEDS ORDERED: HYDROmorphone HCL 2 MG/ML VL IV ONE (00:30)
[2021-08-05] MEDS ORDERED: hydrALAZINE HCL 20 MG/ML VL ONE (00:44)
[2021-08-05] MEDS ORDERED: hydrALAZINE HCL 20 MG/ML VL IV PRN (00:45)
[2021-08-05] MEDS ORDERED: LORazepam 2MG/ML-1ML VIAL IV PRN (01:45)
[2021-08-05] MEDS ORDERED: CARVEDILOL 12.5 MG TAB PO ONE (02:15)
[2021-08-05] MEDS ORDERED: amLODIPine BESYLATE 5 MG TAB PO ONE (02:15)
[2021-08-05] MEDS ORDERED: SODIUM CHLORIDE 0.9% 1,000 ML IV ONE ×2 (02:45→03:30)
[2021-08-05] MEDS ORDERED: NOREPINEPHRINE 8 MG/250ML KIT 250 ML IV ONE (03:45)
[2021-08-05] MEDS ORDERED: ETOMIDATE (2MG/ML) 20ML VIAL IV ONE ×2 (03:59→04:00)
[2021-08-05] MEDS ORDERED: SUCCINYLCHOLINE CHLORIDE 20 MG/ML 10ML VIAL IV ONE ×2 (03:59→04:00)
[2021-08-05] MEDS ORDERED: ROCURONIUM 10MG/ML 10ML VIAL IV ONE ×2 (04:00→05:00)
[2021-08-05] MEDS ORDERED: MIDAZOLAM DRIP 50 mg/50mL 50 ML IV ONE (04:13)
[2021-08-05] MEDS: MIDAZOLAM DRIP 50 mg/50mL 50 ML IV SCH ×3 (04:20→18:55)
[2021-08-05 05:39] LABS: Urine Bacteria NONE SEEN /hpf (None Seen); Urine Blood Negative /uL (Negative); Urine Hyaline Cast FEW /lpf (0 - 2); Urine Mucus FEW (None Seen); Urine Specific Gravity 1.019 (1.001-1.035); Urine WBC 3 /hpf (0 - 3)
[2021-08-05 07:09] LABS: Albumin 2.2 g/dL (3.4-5.0)
[2021-08-05 07:12] LABS: BUN/Creatinine Ratio 16.9; Bilirubin, Total 1.1 mg/dL (0.2-1.0); Total Protein 4.6 g/dL (6.4-8.2)
[2021-08-05] MEDS: SODIUM CHLOR 0.9% PF (SALINE LOCK) 10ML VIAL/SYR IV SCH ×3 (07:39→22:07)
[2021-08-05 07:47] LABS: Calcium 5.7 mg/dL (8.5-10.1)
[2021-08-05 07:48] LABS: Potassium 3.6 mmol/L (3.5-5.1)
[2021-08-05] MEDS ORDERED: CALCIUM GLUC 1,000mg/50ml-NS 50 ML IV ONE (08:00)
[2021-08-05 09:10] LABS: Basophils # (auto) 0.1 10 ^3/uL (0-0.2); Basophils % (auto) 0.4 % (0.0-2.0); Eosinophils # (auto) 0 10 ^3/uL (0-0.8); Eosinophils % (auto) 0.2 % (0.0-7.0); Hematocrit 37.2 % (41.0-53.0); Hemoglobin 12.4 g/dL (13.5-17.5); Lymphocytes # (auto) 1.6 10 ^3/uL (0.4-5.4); Lymphocytes % (auto) 12.5 % (10.0-50.0); Mean Corpuscular Hgb Conc. 33.2 g/dL (32.0-36.0); Mean Corpuscular Volume 87.5 fL (80.0-100.0); Monocytes # (auto) 0.6 10 ^3/uL (0-1.3); Monocytes % (auto) 4.9 % (0.0-12.0); Neutrophils # (auto) 10.8 10 ^3/uL (1.6-8.6); Nucleated Red Blood Cells % 0.1 %; Red Blood Cells 4.26 10^6/uL (4.5-5.90); White Blood Cell 13.2 10^3/uL (4.4-10.8)
[2021-08-05] MEDS ORDERED: ZINC SULFATE 220mg CAP or TAB PO SCH (10:00)
[2021-08-05] MEDS ORDERED: MULTIPLE VITAMIN TAB PO SCH (10:00)
[2021-08-05] MEDS: NOREPINEPHRINE 8 MG/250ML KIT 250 ML IV SCH (10:00)
[2021-08-05] MEDS ORDERED: amLODIPine BESYLATE 5 MG TAB PO SCH (10:00)
[2021-08-05] MEDS ORDERED: CARVEDILOL 3.125 MG TAB PO SCH ×2 (10:00)
[2021-08-05] MEDS ORDERED: PARoxetine 20 MG TAB PO SCH (10:00)
[2021-08-05] MEDS ORDERED: CARVEDILOL 12.5 MG TAB PO SCH (10:00)
[2021-08-05] MEDS ORDERED: ASCORBIC ACID 500 MG TAB PO SCH (10:00)
[2021-08-05] MEDS ORDERED: DOCUSATE ORAL LIQUID 100 MG/10 ML UD GT PRN (10:15)
[2021-08-05] MEDS ORDERED: HYDROcodone-ACET 5/325MG TAB GT PRN (10:15)
[2021-08-05] MEDS: ENOXAPARIN SOD 40 MG/0.4 ML SYRINGE SC SCH (10:26)
[2021-08-05] MEDS: FAMOTIDINE (10MG/ML) 2ML VL IV SCH (10:26)
[2021-08-05] MEDS ORDERED: ACETAMINOPHEN 650 MG RECT SUPP PR ONE (12:45)
[2021-08-05] MEDS ORDERED: levoFLOXacin 500MG 100 ML IV ONE (13:00)
[2021-08-05] MEDS ORDERED: AZITHROMYCIN 500MG/ 250ML 250 ML IV ONE (15:00)
[2021-08-05] MEDS ORDERED: FUROSEMIDE 20 MG/2 ML VIAL IV ONE (15:30)
[2021-08-05] MEDS: fentaNYL Drip 2500mCg/250mlNS 250 ML IV SCH (17:25)
[2021-08-05] MEDS: CARVEDILOL 3.125 MG TAB GT SCH (22:00)
[2021-08-05] MEDS: ATORVASTATIN 20 MG TAB GT SCH (22:06)
[2021-08-05] MEDS: ASCORBIC ACID 500 MG TAB GT SCH (22:07)
[2021-08-06] VITALS (94 sets, daily range): BP systolic 68–148; BP diastolic 41–98
[2021-08-06] MEDS: MIDAZOLAM DRIP 50 mg/50mL 50 ML IV SCH ×3 (00:38→22:03)
[2021-08-06 05:27] LABS: Albumin 3.1 g/dL (3.4-5.0); Anion Gap 11 (5-15); Blood Urea Nitrogen 15 mg/dL (7-18); Calcium 8.1 mg/dL (8.5-10.1); Carbon Dioxide 17 mmol/L (21-32); Chloride 113 mmol/L (98-107); Glucose 81 mg/dL (74-106); Potassium 3.5 mmol/L (3.5-5.1); Sodium 141 mmol/L (136-145)
[2021-08-06 05:31] LABS: Alanine Aminotransferase 30 U/L (16-61); Alkaline Phosphatase 94 U/L (45-117); Aspartate Aminotransferase 55 U/L (15-37); BUN/Creatinine Ratio 22.1; Bilirubin, Total 2.8 mg/dL (0.2-1.0); GFR African American 153 mL/min; GFR Non-African American 127 mL/min; Total Protein 6.5 g/dL (6.4-8.2)
[2021-08-06] MEDS: SODIUM CHLOR 0.9% PF (SALINE LOCK) 10ML VIAL/SYR IV SCH ×3 (06:14→22:02)
[2021-08-06 08:45] LABS: Basophils # (auto) 0 10 ^3/uL (0-0.2); Basophils % (auto) 0.4 % (0.0-2.0); Eosinophils # (auto) 0.2 10 ^3/uL (0-0.8); Eosinophils % (auto) 2.5 % (0.0-7.0); Lymphocytes # (auto) 1.9 10 ^3/uL (0.4-5.4); Lymphocytes % (auto) 23.1 % (10.0-50.0); Mean Corpuscular Hemoglobin 29.6 pg (28.0-32.0); Mean Corpuscular Hgb Conc. 34.2 g/dL (32.0-36.0); Mean Corpuscular Volume 86.5 fL (80.0-100.0); Monocytes # (auto) 0.6 10 ^3/uL (0-1.3); Monocytes % (auto) 7.2 % (0.0-12.0); Neutrophils # (auto) 5.5 10 ^3/uL (1.6-8.6); Neutrophils % (auto) 66.8 % (37.0-80.0); Nucleated Red Blood Cells % 0.2 %; Red Blood Cells 4.39 10^6/uL (4.5-5.90); Red Cell Distribution Width 14.5 % (11.8-14.3); White Blood Cell 8.2 10^3/uL (4.4-10.8)
[2021-08-06] MEDS: ENOXAPARIN SOD 40 MG/0.4 ML SYRINGE SC SCH (09:23)
[2021-08-06] MEDS: levoFLOXacin 500MG 100 ML IV SCH (09:23)
[2021-08-06] MEDS: ZINC SULFATE 220mg CAP or TAB GT SCH (09:24)
[2021-08-06] MEDS: MULTIPLE VITAMIN TAB GT SCH (09:24)
[2021-08-06] MEDS: CARVEDILOL 3.125 MG TAB GT SCH ×2 (09:24→22:00)
[2021-08-06] MEDS: ASCORBIC ACID 500 MG TAB GT SCH ×2 (09:24→22:02)
[2021-08-06] MEDS: FAMOTIDINE (10MG/ML) 2ML VL IV SCH (09:24)
[2021-08-06] MEDS: PARoxetine 20 MG TAB GT SCH (09:34)
[2021-08-06] MEDS: NOREPINEPHRINE 8 MG/250ML KIT 250 ML IV SCH (09:35)
[2021-08-06] MEDS ORDERED: AZITHROMYCIN 500MG/ 250ML 250 ML IV SCH (10:00)
[2021-08-06] MEDS ORDERED: FUROSEMIDE 20 MG/2 ML VIAL IV ONE (10:15)
[2021-08-06] MEDS ORDERED: EPINEPHrine HCL 0.5 ML NEB ONE (15:23)
[2021-08-06] MEDS ORDERED: LORazepam 2MG/ML-1ML VIAL IV ONE (16:45)
[2021-08-06] MEDS ORDERED: ROCURONIUM 10MG/ML 10ML VIAL IV ONE ×2 (17:15→17:16)
[2021-08-06] MEDS ORDERED: ETOMIDATE (2MG/ML) 20ML VIAL IV ONE ×2 (17:15)
[2021-08-06] MEDS ORDERED: SUCCINYLCHOLINE CHLORIDE 20 MG/ML 10ML VIAL IV ONE (17:16)
[2021-08-06] MEDS: fentaNYL Drip 2500mCg/250mlNS 250 ML IV SCH (17:30)
[2021-08-06] MEDS: ATORVASTATIN 20 MG TAB GT SCH (22:02)
[2021-08-06] MEDS ORDERED: VANCOMYCIN PER PHARMACY 0 MG IV SCH (22:30)
[2021-08-06] MEDS ORDERED: VANCOMYCIN 1GM/250ML 250 ML IV SCH (22:30)
[2021-08-07] VITALS (102 sets, daily range): BP systolic 82–135; BP diastolic 41–79
[2021-08-07] MEDS: SODIUM CHLOR 0.9% PF (SALINE LOCK) 10ML VIAL/SYR IV SCH ×3 (06:03→21:41)
[2021-08-07] MEDS: MIDAZOLAM DRIP 50 mg/50mL 50 ML IV SCH ×2 (07:22→15:48)
[2021-08-07] MEDS: levoFLOXacin 500MG 100 ML IV SCH (08:37)
[2021-08-07] MEDS: ZINC SULFATE 220mg CAP or TAB GT SCH (09:35)
[2021-08-07] MEDS: VANCOMYCIN 1GM/250ML 250 ML IV SCH ×2 (09:36→21:41)
[2021-08-07] MEDS: MULTIPLE VITAMIN TAB GT SCH (09:36)
[2021-08-07] MEDS: CARVEDILOL 3.125 MG TAB GT SCH ×2 (09:36→21:40)
[2021-08-07] MEDS: PARoxetine 20 MG TAB GT SCH (09:36)
[2021-08-07] MEDS: ASCORBIC ACID 500 MG TAB GT SCH ×2 (09:36→21:40)
[2021-08-07] MEDS: NOREPINEPHRINE 8 MG/250ML KIT 250 ML IV SCH (09:36)
[2021-08-07] MEDS: ENOXAPARIN SOD 40 MG/0.4 ML SYRINGE SC SCH (09:37)
[2021-08-07] MEDS: FAMOTIDINE (10MG/ML) 2ML VL IV SCH (09:37)
[2021-08-07] MEDS ORDERED: IOHEXOL 350 MG/ML 100ML IJ ONE (15:06)
[2021-08-07] MEDS: fentaNYL Drip 2500mCg/250mlNS 250 ML IV SCH (17:30)
[2021-08-07] MEDS: ATORVASTATIN 20 MG TAB GT SCH (21:40)
[2021-08-08] VITALS (91 sets, daily range): BP systolic 95–141; BP diastolic 50–98
[2021-08-08] MEDS: MIDAZOLAM DRIP 50 mg/50mL 50 ML IV SCH ×4 (00:16→18:17)
[2021-08-08 04:19] LABS: Basophils # (auto) 0 10 ^3/uL (0-0.2); Basophils % (auto) 0.4 % (0.0-2.0); Eosinophils # (auto) 0.3 10 ^3/uL (0-0.8); Eosinophils % (auto) 3.4 % (0.0-7.0); Hematocrit 36.3 % (41.0-53.0); Hemoglobin 12.5 g/dL (13.5-17.5); Lymphocytes # (auto) 1.7 10 ^3/uL (0.4-5.4); Lymphocytes % (auto) 21.2 % (10.0-50.0); Mean Corpuscular Hemoglobin 29.5 pg (28.0-32.0); Mean Corpuscular Hgb Conc. 34.3 g/dL (32.0-36.0); Mean Corpuscular Volume 85.9 fL (80.0-100.0); Monocytes # (auto) 0.7 10 ^3/uL (0-1.3); Monocytes % (auto) 8.5 % (0.0-12.0); Neutrophils # (auto) 5.4 10 ^3/uL (1.6-8.6); Neutrophils % (auto) 66.5 % (37.0-80.0); Nucleated Red Blood Cells % 0.1 %; Red Blood Cells 4.22 10^6/uL (4.5-5.90); Red Cell Distribution Width 14.7 % (11.8-14.3); White Blood Cell 8.1 10^3/uL (4.4-10.8)
[2021-08-08 04:34] LABS: Calcium 8.6 mg/dL (8.5-10.1); Potassium 3.4 mmol/L (3.5-5.1)
[2021-08-08 04:36] LABS: BUN/Creatinine Ratio 27.6
[2021-08-08] MEDS: SODIUM CHLOR 0.9% PF (SALINE LOCK) 10ML VIAL/SYR IV SCH ×3 (06:00→21:24)
[2021-08-08] MEDS: levoFLOXacin 500MG 100 ML IV SCH (08:15)
[2021-08-08] MEDS: MULTIPLE VITAMIN TAB GT SCH (09:23)
[2021-08-08] MEDS: FAMOTIDINE (10MG/ML) 2ML VL IV SCH (09:23)
[2021-08-08] MEDS: CARVEDILOL 3.125 MG TAB GT SCH ×2 (09:23→21:22)
[2021-08-08] MEDS: ZINC SULFATE 220mg CAP or TAB GT SCH (09:24)
[2021-08-08] MEDS: ENOXAPARIN SOD 40 MG/0.4 ML SYRINGE SC SCH (09:24)
[2021-08-08] MEDS: PARoxetine 20 MG TAB GT SCH (09:24)
[2021-08-08] MEDS: VANCOMYCIN 1GM/250ML 250 ML IV SCH ×3 (09:24→22:33)
[2021-08-08] MEDS: ASCORBIC ACID 500 MG TAB GT SCH ×2 (09:24→21:23)
[2021-08-08] MEDS ORDERED: POTASSIUM CHL 20MEQ/100ML 100 ML IV ONE (09:45)
[2021-08-08] MEDS: POTASSIUM CHL 20MEQ/100ML 100 ML IV SCH ×2 (09:49→11:21)
[2021-08-08] MEDS: NOREPINEPHRINE 8 MG/250ML KIT 250 ML IV SCH (10:00)
[2021-08-08] MEDS: fentaNYL Drip 2500mCg/250mlNS 250 ML IV SCH (17:30)
[2021-08-08] MEDS: ATORVASTATIN 20 MG TAB GT SCH (21:23)
[2021-08-09] VITALS (58 sets, daily range): BP systolic 86–165; BP diastolic 36–78
[2021-08-09] MEDS: NOREPINEPHRINE 8 MG/250ML KIT 250 ML IV SCH (00:56)
[2021-08-09] MEDS: MIDAZOLAM DRIP 50 mg/50mL 50 ML IV SCH ×3 (00:58→14:13)
[2021-08-09] MEDS: fentaNYL Drip 2500mCg/250mlNS 250 ML IV SCH ×2 (00:58→14:17)
[2021-08-09] MEDS: SODIUM CHLOR 0.9% PF (SALINE LOCK) 10ML VIAL/SYR IV SCH ×3 (05:35→22:00)
[2021-08-09] MEDS: levoFLOXacin 500MG 100 ML IV SCH (08:39)
[2021-08-09] MEDS ORDERED: GLYCOPYRROLATE 0.2 MG/ML 1ML VIAL ONE (08:50)
[2021-08-09] MEDS ORDERED: LIDOCAINE HCL 2% TOP JELLY 5ML TOP ONE (08:50)
[2021-08-09] MEDS ORDERED: LIDOCAINE 2%HCL (LOCAL ANESTH.) INJ 20ML MDV ONE (08:50)
[2021-08-09] MEDS ORDERED: EPINEPHrine HCL 1 MG/1 ML AMP ONE (08:50)
[2021-08-09] MEDS: ENOXAPARIN SOD 40 MG/0.4 ML SYRINGE SC SCH (09:24)
[2021-08-09] MEDS: ASCORBIC ACID 500 MG TAB GT SCH ×2 (09:24→22:00)
[2021-08-09] MEDS: MULTIPLE VITAMIN TAB GT SCH (09:24)
[2021-08-09] MEDS: CARVEDILOL 3.125 MG TAB GT SCH ×2 (09:25→22:00)
[2021-08-09] MEDS: ZINC SULFATE 220mg CAP or TAB GT SCH (09:26)
[2021-08-09] MEDS: FAMOTIDINE (10MG/ML) 2ML VL IV SCH (09:26)
[2021-08-09] MEDS: VANCOMYCIN 1GM/250ML 250 ML IV SCH ×2 (09:27→20:15)
[2021-08-09] MEDS: PARoxetine 20 MG TAB GT SCH (10:00)
[2021-08-09 10:24] LABS: BUN/Creatinine Ratio 20.8; Calcium 8.7 mg/dL (8.5-10.1); Potassium 4.5 mmol/L (3.5-5.1)
[2021-08-09 11:20] LABS: Basophils # (auto) 0 10 ^3/uL (0-0.2); Basophils % (auto) 0.5 % (0.0-2.0); Eosinophils # (auto) 0.3 10 ^3/uL (0-0.8); Eosinophils % (auto) 4.7 % (0.0-7.0); Hematocrit 37.3 % (41.0-53.0); Hemoglobin 12.8 g/dL (13.5-17.5); Lymphocytes % (auto) 27.5 % (10.0-50.0); Mean Corpuscular Hemoglobin 29.4 pg (28.0-32.0); Mean Corpuscular Hgb Conc. 34.3 g/dL (32.0-36.0); Mean Corpuscular Volume 85.9 fL (80.0-100.0); Monocytes # (auto) 0.6 10 ^3/uL (0-1.3); Monocytes % (auto) 8.6 % (0.0-12.0); Neutrophils # (auto) 4.2 10 ^3/uL (1.6-8.6); Neutrophils % (auto) 58.7 % (37.0-80.0); Nucleated Red Blood Cells % 0.1 %; Red Blood Cells 4.34 10^6/uL (4.5-5.90); Red Cell Distribution Width 14.5 % (11.8-14.3); White Blood Cell 7.2 10^3/uL (4.4-10.8)
[2021-08-09] MEDS: ACETAMINOPHEN 325 MG TAB PO PRN (19:44)
[2021-08-09] MEDS: ATORVASTATIN 20 MG TAB GT SCH (22:00)
[2021-08-10] VITALS (60 sets, daily range): BP systolic 80–154; BP diastolic 32–96
[2021-08-10] MEDS: fentaNYL Drip 2500mCg/250mlNS 250 ML IV SCH ×2 (03:20→20:35)
[2021-08-10] MEDS: MIDAZOLAM DRIP 50 mg/50mL 50 ML IV SCH ×2 (03:21→12:52)
[2021-08-10 04:05] LABS: BUN/Creatinine Ratio 16.7; Calcium 8.8 mg/dL (8.5-10.1); Potassium 3.8 mmol/L (3.5-5.1)
[2021-08-10 04:06] LABS: Basophils # (auto) 0 10 ^3/uL (0-0.2); Basophils % (auto) 0.6 % (0.0-2.0); Eosinophils # (auto) 0.3 10 ^3/uL (0-0.8); Eosinophils % (auto) 3.4 % (0.0-7.0); Hematocrit 38.5 % (41.0-53.0); Hemoglobin 13.5 g/dL (13.5-17.5); Lymphocytes # (auto) 1.8 10 ^3/uL (0.4-5.4); Lymphocytes % (auto) 23.6 % (10.0-50.0); Mean Corpuscular Hemoglobin 29.8 pg (28.0-32.0); Mean Corpuscular Hgb Conc. 34.9 g/dL (32.0-36.0); Mean Corpuscular Volume 85.4 fL (80.0-100.0); Monocytes # (auto) 0.7 10 ^3/uL (0-1.3); Monocytes % (auto) 8.7 % (0.0-12.0); Neutrophils # (auto) 4.8 10 ^3/uL (1.6-8.6); Neutrophils % (auto) 63.7 % (37.0-80.0); Nucleated Red Blood Cells % 0.1 %; Red Blood Cells 4.51 10^6/uL (4.5-5.90); White Blood Cell 7.6 10^3/uL (4.4-10.8)
[2021-08-10] MEDS: VANCOMYCIN 1GM/250ML 250 ML IV SCH ×2 (05:16→17:59)
[2021-08-10] MEDS: SODIUM CHLOR 0.9% PF (SALINE LOCK) 10ML VIAL/SYR IV SCH ×3 (05:16→22:14)
[2021-08-10] MEDS: CARVEDILOL 3.125 MG TAB GT SCH ×2 (10:00→22:00)
[2021-08-10] MEDS: ACETAMINOPHEN 325 MG TAB PO PRN (10:21)
[2021-08-10] MEDS: ASCORBIC ACID 500 MG TAB GT SCH ×2 (10:22→22:14)
[2021-08-10] MEDS: MULTIPLE VITAMIN TAB GT SCH (10:22)
[2021-08-10] MEDS: ZINC SULFATE 220mg CAP or TAB GT SCH (10:22)
[2021-08-10] MEDS: PARoxetine 20 MG TAB GT SCH (10:22)
[2021-08-10] MEDS: levoFLOXacin 500MG 100 ML IV SCH (10:24)
[2021-08-10] MEDS: FAMOTIDINE (10MG/ML) 2ML VL IV SCH (10:24)
[2021-08-10] MEDS: ENOXAPARIN SOD 40 MG/0.4 ML SYRINGE SC SCH (10:25)
[2021-08-10] MEDS: NOREPINEPHRINE 8 MG/250ML KIT 250 ML IV SCH (18:39)
[2021-08-10] MEDS: ATORVASTATIN 20 MG TAB GT SCH (22:14)
[2021-08-11] VITALS (68 sets, daily range): BP systolic 84–162; BP diastolic 54–96
[2021-08-11] MEDS: VANCOMYCIN 1GM/250ML 250 ML IV SCH ×3 (02:36→21:56)
[2021-08-11 04:27] LABS: Basophils # (auto) 0 10 ^3/uL (0-0.2); Basophils % (auto) 0.7 % (0.0-2.0); Eosinophils # (auto) 0.3 10 ^3/uL (0-0.8); Eosinophils % (auto) 4.3 % (0.0-7.0); Hematocrit 37.4 % (41.0-53.0); Hemoglobin 13.2 g/dL (13.5-17.5); Lymphocytes % (auto) 29.2 % (10.0-50.0); Mean Corpuscular Hemoglobin 29.9 pg (28.0-32.0); Mean Corpuscular Hgb Conc. 35.4 g/dL (32.0-36.0); Mean Corpuscular Volume 84.6 fL (80.0-100.0); Monocytes # (auto) 0.6 10 ^3/uL (0-1.3); Monocytes % (auto) 8.7 % (0.0-12.0); Neutrophils # (auto) 3.9 10 ^3/uL (1.6-8.6); Neutrophils % (auto) 57.1 % (37.0-80.0); Nucleated Red Blood Cells % 0.1 %; Red Blood Cells 4.43 10^6/uL (4.5-5.90); Red Cell Distribution Width 13.9 % (11.8-14.3); White Blood Cell 6.9 10^3/uL (4.4-10.8)
[2021-08-11 04:38] LABS: Potassium 3.6 mmol/L (3.5-5.1)
[2021-08-11 04:43] LABS: BUN/Creatinine Ratio 16.2
[2021-08-11] MEDS: SODIUM CHLOR 0.9% PF (SALINE LOCK) 10ML VIAL/SYR IV SCH ×3 (06:00→21:56)
[2021-08-11] MEDS: MIDAZOLAM DRIP 50 mg/50mL 50 ML IV SCH (07:43)
[2021-08-11] MEDS: levoFLOXacin 500MG 100 ML IV SCH (08:44)
[2021-08-11] MEDS: MULTIPLE VITAMIN TAB GT SCH (09:01)
[2021-08-11] MEDS: ZINC SULFATE 220mg CAP or TAB GT SCH (09:02)
[2021-08-11] MEDS: FAMOTIDINE (10MG/ML) 2ML VL IV SCH (09:02)
[2021-08-11] MEDS: ASCORBIC ACID 500 MG TAB GT SCH ×2 (09:02→21:55)
[2021-08-11] MEDS: PARoxetine 20 MG TAB GT SCH (09:02)
[2021-08-11] MEDS: CARVEDILOL 3.125 MG TAB GT SCH ×2 (09:02→21:56)
[2021-08-11] MEDS: ENOXAPARIN SOD 40 MG/0.4 ML SYRINGE SC SCH (09:03)
[2021-08-11] MEDS ORDERED: Jevity 1.2 Cal/Fiber 1 Liter GT SCH (09:30)
[2021-08-11] MEDS: NOREPINEPHRINE 8 MG/250ML KIT 250 ML IV SCH (10:00)
[2021-08-11] MEDS: ACETAMINOPHEN 325 MG TAB PO PRN (12:50)
[2021-08-11] MEDS ORDERED: SODIUM CHLORIDE 0.9% 1,000 ML IV ONE (14:15)
[2021-08-11] MEDS: ATORVASTATIN 20 MG TAB GT SCH (21:54)
[2021-08-12] VITALS (35 sets, daily range): BP systolic 88–148; BP diastolic 48–80
[2021-08-12] MEDS: SODIUM CHLOR 0.9% PF (SALINE LOCK) 10ML VIAL/SYR IV SCH ×3 (06:16→20:58)
[2021-08-12] MEDS: levoFLOXacin 500MG 100 ML IV SCH (09:31)
[2021-08-12] MEDS: ENOXAPARIN SOD 40 MG/0.4 ML SYRINGE SC SCH (09:31)
[2021-08-12] MEDS: FAMOTIDINE (10MG/ML) 2ML VL IV SCH (09:32)
[2021-08-12] MEDS: VANCOMYCIN 1GM/250ML 250 ML IV SCH ×2 (09:54→17:55)
[2021-08-12] MEDS: NOREPINEPHRINE 8 MG/250ML KIT 250 ML IV SCH (11:04)
[2021-08-12] MEDS: IPRATROPIUM BROM 0.5 MG/2.5ML INH SOL NEB PRN (13:56)
[2021-08-12] MEDS: ALBUTEROL SULF 2.5 MG/0.5ML(0.5%) NEB SOLN NEB PRN (13:56)
[2021-08-12] MEDS: ZINC SULFATE 220mg CAP or TAB GT SCH (14:08)
[2021-08-12] MEDS: MULTIPLE VITAMIN TAB GT SCH (14:09)
[2021-08-12] MEDS: PARoxetine 20 MG TAB GT SCH (14:09)
[2021-08-12] MEDS: CARVEDILOL 3.125 MG TAB GT SCH ×2 (14:09→20:58)
[2021-08-12] MEDS: ASCORBIC ACID 500 MG TAB GT SCH ×2 (14:09→20:57)
[2021-08-12] MEDS: LORazepam 2MG/ML-1ML VIAL IV PRN (15:26)
[2021-08-12] MEDS: fentaNYL Drip 2500mCg/250mlNS 250 ML IV SCH (17:30)
[2021-08-12] MEDS: ATORVASTATIN 20 MG TAB GT SCH (20:57)
[2021-08-12] MEDS: ONDANSETRON HCL 4 MG/2 ML VIAL IV PRN (21:11)
[2021-08-13] VITALS (20 sets, daily range): BP systolic 100–140; BP diastolic 50–92
[2021-08-13] MEDS: MORPHINE SULFATE INJECTION 2 MG/ML SYRG IV PRN ×3 (01:45→14:03)
[2021-08-13] MEDS: MIDAZOLAM DRIP 50 mg/50mL 50 ML IV SCH (03:36)
[2021-08-13 03:50] LABS: Basophils # (auto) 0.1 10 ^3/uL (0-0.2); Basophils % (auto) 0.5 % (0.0-2.0); Eosinophils # (auto) 0.1 10 ^3/uL (0-0.8); Eosinophils % (auto) 1.1 % (0.0-7.0); Hematocrit 36.5 % (41.0-53.0); Hemoglobin 12.6 g/dL (13.5-17.5); Lymphocytes # (auto) 1.7 10 ^3/uL (0.4-5.4); Lymphocytes % (auto) 16.8 % (10.0-50.0); Mean Corpuscular Hemoglobin 29.4 pg (28.0-32.0); Mean Corpuscular Hgb Conc. 34.6 g/dL (32.0-36.0); Monocytes # (auto) 0.8 10 ^3/uL (0-1.3); Monocytes % (auto) 8.5 % (0.0-12.0); Neutrophils # (auto) 7.3 10 ^3/uL (1.6-8.6); Neutrophils % (auto) 73.1 % (37.0-80.0); Nucleated Red Blood Cells % 0.1 %; Red Cell Distribution Width 14.1 % (11.8-14.3)
[2021-08-13 04:17] LABS: BUN/Creatinine Ratio 13.8; Calcium 8.8 mg/dL (8.5-10.1); Potassium 4.5 mmol/L (3.5-5.1)
[2021-08-13 04:21] LABS: Bilirubin, Total 1.2 mg/dL (0.2-1.0); Total Protein 7.3 g/dL (6.4-8.2)
[2021-08-13] MEDS: VANCOMYCIN 1GM/250ML 250 ML IV SCH ×2 (04:36→14:02)
[2021-08-13] MEDS: SODIUM CHLOR 0.9% PF (SALINE LOCK) 10ML VIAL/SYR IV SCH ×3 (06:24→21:48)
[2021-08-13] MEDS: FAMOTIDINE (10MG/ML) 2ML VL IV SCH (09:39)
[2021-08-13] MEDS: ENOXAPARIN SOD 40 MG/0.4 ML SYRINGE SC SCH (09:39)
[2021-08-13] MEDS: levoFLOXacin 500MG 100 ML IV SCH (09:39)
[2021-08-13] MEDS: LORazepam 2MG/ML-1ML VIAL IV PRN ×2 (10:44→20:35)
[2021-08-13] MEDS: CARVEDILOL 3.125 MG TAB GT SCH ×2 (17:38→21:49)
[2021-08-13] MEDS: ZINC SULFATE 220mg CAP or TAB GT SCH (17:38)
[2021-08-13] MEDS: MULTIPLE VITAMIN TAB GT SCH (17:39)
[2021-08-13] MEDS: ASCORBIC ACID 500 MG TAB GT SCH ×2 (17:39→21:48)
[2021-08-13] MEDS: PARoxetine 20 MG TAB GT SCH (17:39)
[2021-08-13] MEDS: ACETAMINOPHEN 325 MG TAB PO PRN (21:00)
[2021-08-13] MEDS: ATORVASTATIN 20 MG TAB GT SCH (21:48)
[2021-08-13] MEDS: ACETYLCYSTEINE 10 %(100MG/ML) SOL 4ML NEB SCH (22:00)
[2021-08-13] MEDS: IPRATROPIUM BROM 0.5 MG/2.5ML INH SOL NEB PRN (22:00)
[2021-08-13] MEDS: ALBUTEROL SULF 2.5 MG/0.5ML(0.5%) NEB SOLN NEB PRN (22:00)
[2021-08-14] VITALS (8 sets, daily range): BP systolic 102–128; BP diastolic 73–100
[2021-08-14] MEDS: ONDANSETRON HCL 4 MG/2 ML VIAL IV PRN ×2 (02:25→10:56)
[2021-08-14] MEDS: SODIUM CHLOR 0.9% PF (SALINE LOCK) 10ML VIAL/SYR IV SCH ×3 (06:00→23:16)
[2021-08-14] MEDS: IPRATROPIUM BROM 0.5 MG/2.5ML INH SOL NEB PRN ×3 (06:42→21:47)
[2021-08-14] MEDS: ALBUTEROL SULF 2.5 MG/0.5ML(0.5%) NEB SOLN NEB PRN ×3 (06:42→21:47)
[2021-08-14] MEDS: ACETYLCYSTEINE 10 %(100MG/ML) SOL 4ML NEB SCH ×3 (06:42→21:47)
[2021-08-14] MEDS: VANCOMYCIN 1GM/250ML 250 ML IV SCH ×3 (09:45→20:32)
[2021-08-14] MEDS: PARoxetine 20 MG TAB GT SCH (09:46)
[2021-08-14] MEDS: FAMOTIDINE (10MG/ML) 2ML VL IV SCH (09:46)
[2021-08-14] MEDS: ENOXAPARIN SOD 40 MG/0.4 ML SYRINGE SC SCH (09:46)
[2021-08-14] MEDS: ASCORBIC ACID 500 MG TAB GT SCH ×2 (10:00→23:17)
[2021-08-14] MEDS: CARVEDILOL 3.125 MG TAB GT SCH ×2 (10:00→23:16)
[2021-08-14] MEDS: MULTIPLE VITAMIN TAB GT SCH (10:00)
[2021-08-14] MEDS: ZINC SULFATE 220mg CAP or TAB GT SCH (10:00)
[2021-08-14] MEDS: levoFLOXacin 500MG 100 ML IV SCH (10:55)
[2021-08-14] MEDS: MORPHINE SULFATE INJECTION 2 MG/ML SYRG IV PRN ×2 (12:16→20:07)
[2021-08-14] MEDS: ATORVASTATIN 20 MG TAB GT SCH (23:16)
[2021-08-15] MEDS: LORazepam 2MG/ML-1ML VIAL IV PRN ×2 (00:02→23:51)
[2021-08-15] MEDS: MORPHINE SULFATE INJECTION 2 MG/ML SYRG IV PRN ×2 (04:15→21:36)
[2021-08-15 05:00] VITALS: BP 136/78
[2021-08-15] MEDS: SODIUM CHLOR 0.9% PF (SALINE LOCK) 10ML VIAL/SYR IV SCH ×3 (06:07→23:18)
[2021-08-15] MEDS: ALBUTEROL SULF 2.5 MG/0.5ML(0.5%) NEB SOLN NEB PRN ×3 (06:16→18:39)
[2021-08-15] MEDS: ACETYLCYSTEINE 10 %(100MG/ML) SOL 4ML NEB SCH ×3 (06:16→18:39)
[2021-08-15] MEDS: IPRATROPIUM BROM 0.5 MG/2.5ML INH SOL NEB PRN ×3 (06:16→18:39)
[2021-08-15 06:45] LABS: Calcium 9.3 mg/dL (8.5-10.1); Potassium 3.7 mmol/L (3.5-5.1)
[2021-08-15 06:51] LABS: Albumin 3.3 g/dL (3.4-5.0); BUN/Creatinine Ratio 18.2; Bilirubin, Total 0.8 mg/dL (0.2-1.0); Total Protein 7.6 g/dL (6.4-8.2)
[2021-08-15] MEDS ORDERED: VANCOMYCIN 1GM/250ML 250 ML IV SCH (07:00)
[2021-08-15 09:00] VITALS: BP 98/67
[2021-08-15] MEDS: FAMOTIDINE (10MG/ML) 2ML VL IV SCH (09:54)
[2021-08-15] MEDS: MULTIPLE VITAMIN TAB GT SCH (09:54)
[2021-08-15] MEDS: ZINC SULFATE 220mg CAP or TAB GT SCH (09:54)
[2021-08-15] MEDS: ASCORBIC ACID 500 MG TAB GT SCH ×2 (09:55→21:32)
[2021-08-15] MEDS: levoFLOXacin 500MG 100 ML IV SCH (09:55)
[2021-08-15] MEDS: CARVEDILOL 3.125 MG TAB GT SCH ×2 (09:55→21:36)
[2021-08-15] MEDS: ENOXAPARIN SOD 40 MG/0.4 ML SYRINGE SC SCH (09:55)
[2021-08-15] MEDS: PARoxetine 20 MG TAB GT SCH (10:48)
[2021-08-15 13:10] VITALS: BP 124/75
[2021-08-15 15:47] LABS: Urine Bacteria FEW /hpf (None Seen); Urine Blood 3+ /uL (Negative); Urine Mucus FEW (None Seen); Urine Specific Gravity 1.025 (1.001-1.035); Urine WBC 25 /hpf (0 - 3)
[2021-08-15 17:00] VITALS: BP 135/65
[2021-08-15] MEDS: [UNRECOGNIZED DRUG - OTHER] PO SCH (17:06)
[2021-08-15 21:30] VITALS: BP 127/73
[2021-08-15] MEDS: ATORVASTATIN 20 MG TAB GT SCH (21:32)
[2021-08-16 05:00] VITALS: BP 130/109
[2021-08-16] MEDS: ACETYLCYSTEINE 10 %(100MG/ML) SOL 4ML NEB SCH ×3 (06:00→19:48)
[2021-08-16] MEDS: SODIUM CHLOR 0.9% PF (SALINE LOCK) 10ML VIAL/SYR IV SCH ×3 (06:08→22:00)
[2021-08-16 07:04] LABS: Anion Gap 9 (5-15); Blood Urea Nitrogen 17 mg/dL (7-18); Calcium 9.1 mg/dL (8.5-10.1); Carbon Dioxide 24 mmol/L (21-32); Chloride 113 mmol/L (98-107); Glucose 111 mg/dL (74-106); Potassium 3.5 mmol/L (3.5-5.1); Sodium 146 mmol/L (136-145)
[2021-08-16 07:07] LABS: BUN/Creatinine Ratio 22.4; GFR African American 135 mL/min; GFR Non-African American 112 mL/min
[2021-08-16] MEDS: [UNRECOGNIZED DRUG - OTHER] PO SCH ×3 (07:09→17:00)
[2021-08-16 09:10] VITALS: BP 113/48
[2021-08-16] MEDS: levoFLOXacin 500MG 100 ML IV SCH (09:46)
[2021-08-16] MEDS: ASCORBIC ACID 500 MG TAB GT SCH ×2 (09:46→22:09)
[2021-08-16] MEDS: ZINC SULFATE 220mg CAP or TAB GT SCH (09:46)
[2021-08-16] MEDS: MULTIPLE VITAMIN TAB GT SCH (09:47)
[2021-08-16] MEDS: CARVEDILOL 3.125 MG TAB GT SCH ×2 (09:47→22:08)
[2021-08-16] MEDS: FAMOTIDINE (10MG/ML) 2ML VL IV SCH (09:48)
[2021-08-16] MEDS: PARoxetine 20 MG TAB GT SCH (09:48)
[2021-08-16 13:00] VITALS: BP 130/65
[2021-08-16] MEDS: IPRATROPIUM BROM 0.5 MG/2.5ML INH SOL NEB PRN ×2 (14:06→19:48)
[2021-08-16] MEDS: ALBUTEROL SULF 2.5 MG/0.5ML(0.5%) NEB SOLN NEB PRN ×2 (14:06→19:48)
[2021-08-16 17:00] VITALS: BP 90/54
[2021-08-16 22:00] VITALS: BP 118/67
[2021-08-16] MEDS: ATORVASTATIN 20 MG TAB GT SCH (22:08)
[2021-08-17] MEDS: ACETAMINOPHEN 325 MG TAB PO PRN (04:22)
[2021-08-17 04:58] VITALS: BP 109/80
[2021-08-17] MEDS: SODIUM CHLOR 0.9% PF (SALINE LOCK) 10ML VIAL/SYR IV SCH ×2 (06:00→14:16)
[2021-08-17] MEDS: [UNRECOGNIZED DRUG - OTHER] PO SCH ×2 (06:39→11:30)
[2021-08-17 09:00] VITALS: BP 128/65
[2021-08-17] MEDS: levoFLOXacin 500MG 100 ML IV SCH (09:00)
[2021-08-17] MEDS: FAMOTIDINE (10MG/ML) 2ML VL IV SCH ×2 (09:54→10:00)
[2021-08-17] MEDS: CARVEDILOL 3.125 MG TAB GT SCH (09:54)
[2021-08-17] MEDS: MULTIPLE VITAMIN TAB GT SCH (09:54)
[2021-08-17] MEDS: ASCORBIC ACID 500 MG TAB GT SCH (09:54)
[2021-08-17] MEDS: ZINC SULFATE 220mg CAP or TAB GT SCH (09:54)
[2021-08-17] MEDS: PARoxetine 20 MG TAB GT SCH (10:43)
[2021-08-17 13:00] VITALS: BP 118/93
[2021-08-17 13:41] VITALS: BP 128/65
== END 2021-08-17 15:45 | disposition home or self-care (01) | DRG 870 ==
LOC: EDBD 17:27 → ER 17:33 → OVERFLOW 23:02 → TELE 23:03 → ICU WEST 08-05 16:44 → TELE-EAST 08-14 15:14
PROVIDERS: ADMIT Nurse Practitioner Family; ATTEND Family Medicine
PROC: 5A1955Z Respiratory Ventilation, Greater than 96 Consecutive Hours (ICD-10-PCS; principal; 2021-08-05)
PROC: 0BH17EZ Insertion of Endotracheal Airway into Trachea, Via Natural or Artificial Opening (ICD-10-PCS; 2021-08-05)
PROC: 05HC33Z Insertion of Infusion Device into Left Basilic Vein, Percutaneous Approach (ICD-10-PCS; 2021-08-05)
PROC: B54NZZA Ultrasonography of Left Upper Extremity Veins, Guidance (ICD-10-PCS; 2021-08-05)
DX: A41.9 Sepsis, unspecified organism (principal); J96.01 Acute respiratory failure with hypoxia; J18.9 Pneumonia, unspecified organism; R65.21 Severe sepsis with septic shock; J81.1 Chronic pulmonary edema; I16.0 Hypertensive urgency; J20.9 Acute bronchitis, unspecified; K21.9 Gastro-esophageal reflux disease without esophagitis; E78.00 Pure hypercholesterolemia, unspecified; G62.9 Polyneuropathy, unspecified; Z20.822 Contact with and (suspected) exposure to COVID-19; E78.5 Hyperlipidemia, unspecified; I10 Essential (primary) hypertension; F32.A Depression, unspecified; Z74.01 Bed confinement status; Z88.0 Allergy status to penicillin; Z79.899 Other long term (current) drug therapy; Z82.49 Family history of ischemic heart disease and other diseases of the circulatory system; Z83.3 Family history of diabetes mellitus; Z90.49 Acquired absence of other specified parts of digestive tract
CPT/HCPCS: 31500; 36415; 36600; 71045; 71275; 76700; 80048; 80053; 80061; 80202; 81001; 82805; 83605; 83735; 83880; 84484; 85025; 85610; 85730; 87040; 87070; 87077; 87081; 87086; 87186; 87205; 92610; 93005; 93306; 93970; 94002; 94003; 94640; 96361; 96365; 96366; 96367; 96375; A4618; G0378; J0171; J0330; J1956; J2250; J2405; J3480; J3490; J7060